=== PATIENT | male | born 1970 | race Caucasian/White ===

== ENCOUNTER → 2016-09-30 | Outpatient (CLI) | payer OTHER ==
[2016-09-30 11:06] LABS: BASO % 0.2 %; BASO ABS # 0.01 K/uL (0-0.2); COMPLETE YES; HEMATOCRIT 42.4 % (42-52); IG% 0.6 %; LYMPH ABS # 1.98 K/uL (1.2-3.4); MEAN CELL VOLUME 88.3 fL (80-100); MEAN CORPUSCULAR HEMOGLOBIN 30.6 pg (25-34); MEAN CORPUSCULAR HGB CONC 34.7 g/dl (32-36); MONO % 10.6 %; NEUT % 47.6 %; PLATELET COUNT 293 K/uL (130-400); WHITE BLOOD COUNT 5.08 K/uL (4.8-10.8)
[2016-09-30 11:34] LABS: ALT/SGPT 32 U/L (12-78); AST/SGOT 15 U/L (15-37); BLOOD UREA NITROGEN 14 mg/dl (7-18); BUN/CREATININE RATIO 12.9 (10-20); CALCIUM 8.7 mg/dl (8.5-10.1); CARBON DIOXIDE 26 mmol/L (21-32); CHLORIDE 106 mmol/L (98-107); CHOLESTEROL 179 mg/dl (0-200); GLUCOSE 95 mg/dl (70-99); POTASSIUM 4.3 mmol/L (3.5-5.1); SODIUM 139 mmol/L (136-145); TRIGLYCERIDES 138 mg/dl (0-150); VERY LOW DENSITY LIPOPROT CALC 28 mg/dl
[2016-09-30 11:37] LABS: ALB/GLOB RATIO 1.2 (0.9-2); ALKALINE PHOSPHATASE 68 U/L (45-117); HDL CHOLESTEROL 36 mg/dl; LDL CHOLESTEROL CALCULATED 115 mg/dl
[2016-10-03 16:30] LABS: LSP % CELLS ANALYZED CD4 35 % (30-61); LSP ABSOLUTE CT CD4 646 cells/uL (490-1740); LSP LYMPHOCYTES ABSOLUTE 1870 cells/uL (850-3900)
== END | disposition home or self-care (01) ==
LOC: C.LAB1850 09:43
PROVIDERS: ATTEND Internal Medicine Infectious Disease
DX: B20 Human immunodeficiency virus [HIV] disease (principal)

== ENCOUNTER → 2017-06-08 | Outpatient (CLI) | payer BC, OTHER ==
[2017-06-08 10:19] LABS: BASO % 0.3 %; BASO ABS # 0.02 K/uL (0-0.2); COMPLETE YES; EOS % 0.9 %; HEMATOCRIT 42.7 % (42-52); IG% 0.3 %; LYMPH % 21.5 %; LYMPH ABS # 1.45 K/uL (1.2-3.4); MEAN CELL VOLUME 91.4 fL (80-100); MEAN CORPUSCULAR HEMOGLOBIN 30.8 pg (25-34); MEAN CORPUSCULAR HGB CONC 33.7 g/dl (32-36); MEAN PLATELET VOLUME 9.7 fL (7.4-10.4); MONO % 10.8 %; NEUT % 66.2 %; PLATELET COUNT 255 K/uL (130-400); RED BLOOD COUNT 4.67 M/uL (4.7-6.1); WHITE BLOOD COUNT 6.75 K/uL (4.8-10.8)
[2017-06-08 10:41] LABS: BLOOD UREA NITROGEN 14 mg/dl (7-18); CREATININE 0.99 mg/dl (0.60-1.40); GLUCOSE 69 mg/dl (70-99)
[2017-06-08 10:42] LABS: ALT/SGPT 33 U/L (12-78); AST/SGOT 19 U/L (15-37); BUN/CREATININE RATIO 14.1 (10-20); CALCIUM 9.1 mg/dl (8.5-10.1); CARBON DIOXIDE 30 mmol/L (21-32); CHLORIDE 104 mmol/L (98-107); SODIUM 135 mmol/L (136-145)
[2017-06-08 10:44] LABS: ALB/GLOB RATIO 1.1 (0.9-2); ALKALINE PHOSPHATASE 79 U/L (45-117)
[2017-06-10 09:31] LABS: LSP % CELLS ANALYZED CD4 39 % (30-61); LSP ABSOLUTE CT CD4 509 cells/uL (490-1740); LSP LYMPHOCYTES ABSOLUTE 1293 cells/uL (850-3900)
== END | disposition home or self-care (01) ==
LOC: C.LAB1850 09:24
PROVIDERS: ATTEND Internal Medicine Infectious Disease
DX: B20 Human immunodeficiency virus [HIV] disease (principal)

== ENCOUNTER 2024-04-12 13:01 | Inpatient (IN) ==
--- NOTE | 2024-04-12 13:48 | Emergency Department Note ---
Impression & Plan Lumbosacral radiculopathy, Neuroforaminal stenosis of lumbar spine ED Provider Note NAME: GENI RIVAS AGE: 53 SEX: M : 1970 ARRIVES VIA: Walk-In INFORMANT: Patient ED PROVIDER(S): JANEL Otto, Vinh Mcelroy DO CHIEF COMPLAINT: Back pain, numbness HISTORY OF PRESENT ILLNESS: This 53-year-old male patient presents to the emergency department via private vehicle for evaluation of right-sided back pain, with numbness and tingling down the right extremity. He reports he went to [facility] last week when he noticed the pain worsening. He reports Wednesday he was barely able to walk. He states they performed no imaging, and discharged him home. He reports the pain worsened to the point where he was unable to stand. He states he has an outpatient MRI scheduled for Wednesday, however the pain is so severe, he is unable to ambulate. He reports he was unable to walk to the room, and required a wheelchair. He reports subjective paresthesias in the right leg, no loss of bowel or bladder, no numbness or tingling in the groin. He states he feels as if the right leg is going to "give out on him." He denies injury, fever, abdominal pain, nausea, vomiting, diarrhea, constipation, or dysuria. REVIEW OF SYSTEMS: A review of systems was performed with positives and pertinent negatives listed in the history of present illness. All other systems were reviewed and are negative. ALLERGIES: See below MEDICATIONS: See below PMH: See below PHYSICAL EXAM: VITALS: Vitals are noted on the nurse's note and reviewed by myself. Vital signs stable. GENERAL: 53-year-old male, in no acute distress, nondiaphoretic, well-developed well-nourished. SKIN: The skin was without rashes, erythema, edema, or bruising. HEAD: Normocephalic atraumatic. HEART: Regular rate and rhythm without murmurs gallops or rubs. LUNGS: Clear to auscultation bilaterally without wheezes, rales or rhonchi. No retractions or accessory muscle use. ABDOMEN: Positive bowel sounds x 4. Soft, nontender, without masses or organomegaly. Arellano sign negative. No guarding or rebound tenderness. MUSCULOSKELETAL: Positive, right and left straight leg raise, right worse than left. Sensation, intact to dull and sharp, bilaterally. Pain with dorsiflexion and plantarflexion of the right foot, DP pulse intact. TTP right paraspinal region, no palpable spasm present. NEURO: Patient was alert and oriented to person place and time. No focal neurological deficits. MEDICAL DECISION MAKING: The patient is a pleasant 53-year-old male who arrives to the emergency department for evaluation of the above-stated complaint. A saline lock was established, CBC, CMP, ESR, CRP were obtained. CBC shows no leukocytosis, with a stable hemoglobin and hematocrit, CMP is unremarkable, ESR, CRP within normal limits. Patient was provided 500 mg of Robaxin, 10 mg of IM dexamethasone, 30 mg of IM Toradol, and 1000 mg of p.o. acetaminophen, as well as a topical Lidoderm patche. CT imaging of the lumbar spine without contrast was obtained which shows a posterior annular disc bulge at L4-L5 in conjunction with ligamentum flavum thickening and facet arthrosis causes moderate central canal stenosis with moderate to severe bilateral foraminal narrowing. I spoke with Dr. Tsang from orthopedic spine, who recommended MRI imaging for further evaluation, and agreed to consult the patient, during admission. An IV dose of morphine, as well as IV fluids were provided to the patient for further pain control, which was unsuccessful. The patient is unable to stand, without severe discomfort, he has significant ambulatory dysfunction, and requires pain control. I spoke with the hospitalist regarding patient admission, with orthopedic consult. Dr. Hein, agreed to accept the patient for admission, and further workup. Please refer to his documentation for further patient care, MRI imaging results, and pain control. DIFFERENTIAL DIAGNOSIS: Musculoskeletal, disc herniation, fracture, metastatic disease, cord compression, discitis, sciatica, cauda equina, infection, aortic disease, renal colic, gastrointestinal, as well as other pathologies. The chart was completed utilizing [employer] Speech voice recognition software. Grammatical errors, random word insertions, pronoun errors, and incomplete sentences are an occasional consequence of this system due to software limitations, ambient noise, and hardware issues. Any formal questions or concerns about the content, text, or information contained within the body of this dictation should be directly addressed to the physician for clarification. Past Med/Surg History Problem List (Updated 04/17/24 @ 21:33 by JANEL Miller) Neuroforaminal stenosis of lumbar spine (Acute) Lumbosacral radiculopathy (Acute) Anxiety and depression Dyslipidemia HIV (human immunodeficiency virus infection) HTN (hypertension) BPH w urinary obs/LUTS (Chronic) Encounter for vasectomy (Acute) Surgical History History of tonsillectomy and adenoidectomy History of cholecystectomy H/O circumcision Family History Brother Heart disease Father Heart disease Mother Heart disease Social History Smoking Status: Never smoker Hx Alcohol Use: No Hx Substance Use: Yes Prescribed Medications: Marijuana Last Used Substance: Unknown Substance Use Type Other:: Marijuana vape Preferred Language: Moroccan Communication Ability: Effective 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 Room Required: No Beliefs That Will Affect Care: None Current Living Situation: Alone Feels Safe at Home: Yes Safety Concerns: Feels Safe At This Time Assistive Devices: None Assistive Devices Comment: Upper partial Allergies Allergies Allergy/AdvReac Type Severity Reaction Status Date / Time carbamazepine AdvReac Intermediate aches Verified 04/12/24 20:50 Home Meds Home Medications Medication Instructions Recorded Confirmed atorvastatin 20 mg tablet 20 mg PO DAILY 02/24/24 04/12/24 bictegravir 50 mg-emtricitabine 1 tab PO DAILY 02/24/24 04/12/24 200 mg-tenofovir alafenam 25 mg tablet (Biktarvy) bupropion HCl 150 mg 24 hr tablet, 150 mg PO QAM 02/24/24 04/12/24 extended release bupropion HCl 300 mg 24 hr tablet, 300 mg PO QAM 02/24/24 04/12/24 extended release metformin 500 mg tablet 500 mg PO BIDM 02/24/24 04/12/24 lamotrigine 100 mg tablet 200 mg PO DAILY 04/12/24 04/12/24 lisinopril 20 20 - 25 tab PO DAILY 04/12/24 04/12/24 mg-hydrochlorothiazide 25 mg tablet melatonin 5 mg tablet 5 mg PO HS PRN Insomnia 04/12/24 04/12/24 trazodone 50 mg tablet 50 mg PO QPM 10/02/24 10/02/24 Previous Rx's Medication Instructions Recorded finasteride 5 mg tablet 5 mg PO DAILY #90 tabs 02/24/24 tamsulosin 0.4 mg capsule 0.4 mg PO DAILY #30 caps 02/24/24 docusate sodium 100 mg capsule 100 mg PO BID PRN constipation #20 04/16/24 caps gabapentin 300 mg capsule 300 mg PO TID #90 caps 04/16/24 oxycodone 10 mg tablet 10 mg PO Q6H PRN pain (scale score 04/16/24 7-10) 5 days #20 tabs Results & Data (ED) Vital Signs Vital Signs - 24 hr 04/12/24 13:14 Temperature 36.6 C Temperature Source Skin Pulse Rate 78 Respiratory Rate 18 Blood Pressure 161/100 H Blood Pressure Mean 120 Pulse Oximetry 98 Sepsis Recent Fever Within 48 Hours No Sepsis New/Unexplained Change in Mental Status No Sepsis Action Taken by Nursing No Action Required Home Medications Current Medication List: was personally reviewed by me Laboratory Data Attestation: I reviewed the patient's lab results. 04/14/24 06:39 04/14/24 06:39 Lab Results 04/12/24 04/12/24 04/12/24 Range/Units 18:55 19:10 19:56 WBC 7.45 (4.8-10.8) K/ul RBC 5.21 (4.70-6.10) M/uL Hgb 16.1 (14.0-18.0) g/dl Hct 45.5 (42.0-52.0) % MCV 87.3 (80.0-100.0) fL MCH 30.9 (25.0-34.0) pg MCHC 35.4 (32.0-36.0) g/dL RDW Std Deviation 35.8 L (36.4-46.3) fL RDW Coeff of Cesar 11.2 L (11.5-14.5) % Plt Count 320 (130-400) K/uL MPV 9.2 L (9.4-12.4) fL Immature Gran % (Auto) 0.8 % Neut % (Auto) 88.6 % Lymph % (Auto) 9.1 % Woodson % (Auto) 1.3 % Eos % (Auto) 0.1 % Baso % (Auto) 0.1 % Neut # (Auto) 6.59 H (1.40-6.50) K/uL Lymph # (Auto) 0.68 L (1.20-3.40) K/uL Woodson # (Auto) 0.10 L (0.11-0.59) K/uL Eos # (Auto) 0.01 (0.00-0.50) K/uL Baso # (Auto) 0.01 (0.00-0.20) K/uL Immature Gran # (Auto) 0.06 (0.01-0.20) K/uL ESR 10 (0-20) mm/hr Sodium 135 L (136-145) mmol/L Potassium 4.2 (3.5-5.1) mmol/L Chloride 101 (98-107) mmol/L Carbon Dioxide 24 (21-32) mmol/L Anion Gap 10 (3-11) BUN 19 (6-23) mg/dl Creatinine 0.96 (0.6-1.4) mg/dl Est Cr Clr Drug Dosing 122.9 ml/min eGFR 95.70 BUN/Creatinine Ratio 19.8 (10-20) Glucose 128 H (70-99(Fasting)) mg/dl Estimat Average Glucose 103 mg/dl Hemoglobin A1c 5.2 (4.5-5.6) % Calcium 9.9 (8.6-10.3) mg/dl Total Bilirubin 0.7 (0.2-1.0) mg/dl AST 23 (13-39) U/L ALT 28 (7-52) U/L Alkaline Phosphatase 59 (34-104) U/L C-Reactive Protein < 0.50 (0-0.5) mg/dl Total Protein 7.9 (6.0-8.3) gm/dl Albumin 5.1 H (3.4-5.0) gm/dl Globulin 2.8 (2.5-4.0) gm/dl Albumin/Globulin Ratio 1.8 (0.9-2) Urine Color Yellow Urine Appearance Clear (Clear) Urine pH 6.5 (4.5-7.5) Ur Specific Bell 1.030 (1.000-1.030) Urine Protein Negative (Negative) Urine Glucose (UA) Negative (Negative) Urine Ketones Negative (Negative) Urine Blood Negative (Negative) Urine Nitrite Negative (Negative) Urine Bilirubin Negative (Negative) Urine Urobilinogen Negative (Negative) Ur Leukocyte Esterase Negative (Negative) Administered Medications Discontinued Medications Acetaminophen (Acetaminophen 500 Mg Tab) 1,000 mg PO NOW STA Stop: 04/12/24 14:24 Last Admin: 04/12/24 14:39 Dose: 1,000 mg Documented By: LAXMI Acetaminophen (Acetaminophen 325 Mg Tab) 650 mg PO QID PRN PRN Reason: pain/fever Stop: 05/12/24 19:29 Last Admin: 04/15/24 19:48 Dose: 650 mg Documented By: Admin: 04/15/24 02:29 Dose: 650 mg Documented By: Admin: 04/14/24 05:21 Dose: 650 mg Documented By: Admin: 04/13/24 20:39 Dose: 650 mg Documented By: Admin: 04/13/24 10:03 Dose: 650 mg Documented By: KRISTIE Atorvastatin Calcium (Atorvastatin 20 Mg Tab) 20 mg PO DAILY KOLE Stop: 05/14/24 08:59 Last Admin: 04/16/24 09:01 Dose: 20 mg Documented By: Admin: 04/15/24 09:18 Dose: 20 mg Documented By: Admin: 04/14/24 09:23 Dose: 20 mg Documented By: CLARE Bictegravir/Emtricitabine/Tenofovir (Biktarvy) 1 each PO DAILY KOLE Stop: 05/14/24 08:59 Last Admin: 04/16/24 09:02 Dose: 1 each Documented By: Admin: 04/15/24 09:19 Dose: 1 each Documented By: Admin: 04/14/24 09:24 Dose: 1 each Documented By: CLARE Bupropion HCl (Bupropion Xl 300 Mg Tabcr) 300 mg PO QAM KOLE Stop: 05/13/24 08:59 Last Admin: 04/16/24 09:00 Dose: 300 mg Documented By: Admin: 04/15/24 09:18 Dose: 300 mg Documented By: [facility] Admin: 04/14/24 09:22 Dose: 300 mg Documented By: Admin: 04/13/24 08:28 Dose: 300 mg Documented By: KRISTIE Bupropion HCl (Bupropion Xl 150 Mg Tabcr) 150 mg PO QAM KOLE Stop: 05/13/24 08:59 Last Admin: 04/16/24 09:02 Dose: 150 mg Documented By: Admin: 04/15/24 09:18 Dose: 150 mg Documented By: Admin: 04/14/24 09:22 Dose: 150 mg Documented By: Admin: 04/13/24 08:28 Dose: 150 mg Documented By: KRISTIE Dexamethasone Sodium Phosphate (DexamethasonePf 10 Mg/Ml Vial) 10 mg IM NOW ONE Stop: 04/12/24 14:24 Last Admin: 04/12/24 14:40 Dose: 10 mg Documented By: LAXMI Docusate Sodium (Docusate Sodium 100 Mg Cap) 100 mg PO BID KOLE Stop: 05/14/24 20:59 Last Admin: 04/16/24 09:06 Dose: 100 mg Documented By: Admin: 04/15/24 19:47 Dose: 100 mg Documented By: Admin: 04/15/24 09:24 Dose: 100 mg Documented By: Admin: 04/14/24 21:06 Dose: 100 mg Documented By: MACHELLE Finasteride (Finasteride 5 Mg Tab) 5 mg PO DAILY KOLE Stop: 05/14/24 08:59 Last Admin: 04/16/24 09:01 Dose: 5 mg Documented By: Admin: 04/15/24 09:18 Dose: 5 mg Documented By: Admin: 04/14/24 09:23 Dose: 5 mg Documented By: CLARE Gabapentin (Gabapentin 300 Mg Cap) 300 mg PO QPM KOLE Stop: 05/12/24 21:58 Last Admin: 04/12/24 22:42 Dose: 300 mg Documented By: BRIDGETT Gabapentin (Gabapentin 300 Mg Cap) 300 mg PO QPM KOLE Stop: 05/12/24 20:59 Last Admin: 04/13/24 20:39 Dose: 300 mg Documented By: MACHELLE Gabapentin (Gabapentin 300 Mg Cap) 300 mg PO BID KOLE Stop: 05/14/24 20:59 Last Admin: 04/15/24 09:18 Dose: 300 mg Documented By: Admin: 04/14/24 21:06 Dose: 300 mg Documented By: MACHELLE Gabapentin (Gabapentin 300 Mg Cap) 300 mg PO TID KOLE Stop: 05/15/24 20:59 Last Admin: 04/16/24 13:20 Dose: 300 mg Documented By: Admin: 04/16/24 09:00 Dose: 300 mg Documented By: Admin: 04/15/24 19:47 Dose: 300 mg Documented By: MACHELLE Sodium Chloride (Nss) 1,000 mls @ 999 mls/hr IV .Q1H1M ONE Stop: 04/12/24 19:40 Last Infusion: 04/12/24 20:25 Dose: Infused Documented By: Admin: 04/12/24 19:08 Dose: 999 mls/hr Documented By: MELISSA Sodium Chloride (Nss) 1,000 mls @ 60 mls/hr IV .[id number] ONE Stop: 04/13/24 13:29 Last Infusion: 04/13/24 12:39 Dose: Infused Documented By: Admin: 04/12/24 22:10 Dose: 60 mls/hr Documented By: BRIDGETT Influenza Virus Vacc Triv Types A&B (Influenza Vacc [id number](6m+)/Pf (Iiv3) 0.5ml Syr) 0.5 ml IM .ONCE ONE Stop: 04/13/24 09:01 Last Admin: 04/14/24 10:01 Dose: Not Given Documented By: CLARE Insulin Aspart (Insulin Aspart Per Unit Charge) 0 units SC ACHS [facility] Stop: 05/12/24 21:58 Last Admin: 04/14/24 10:02 Dose: Not Given Documented By: [facility] Admin: 04/13/24 22:18 Dose: Not Given Documented By: MACHELLE Co-signed By: JOSE Admin: 04/13/24 17:39 Dose: Not Given Documented By: Admin: 04/13/24 12:39 Dose: Not Given Documented By: Admin: 04/13/24 08:59 Dose: 2 units Documented By: KRISTIE Co-signed By: POONAM Admin: 04/12/24 22:38 Dose: 1 units Documented By: BRIDGETT Co-signed By: JOSE Insulin Aspart (Insulin Aspart Per Unit Charge) 0 units SC Q6 [facility] Stop: 05/14/24 07:59 Last Admin: 04/14/24 11:50 Dose: Not Given Documented By: Admin: 04/14/24 09:20 Dose: Not Given Documented By: CLARE Insulin Aspart (Insulin Aspart Per Unit Charge) 0 units SC ACHS [facility] Stop: 05/14/24 07:59 Last Admin: 04/16/24 12:21 Dose: Not Given Documented By: Admin: 04/16/24 08:56 Dose: 3 units Documented By: NIDHI Co-signed By: MARIELLA Admin: 04/15/24 20:33 Dose: Not Given Documented By: MACHELLE Co-signed By: STEPHEN Admin: 04/15/24 17:34 Dose: 2 units Documented By: JORDAN Co-signed By: YOKASTA Admin: 04/15/24 12:12 Dose: 1 units Documented By: JORDAN Co-signed By: STEPHEN Admin: 04/15/24 09:25 Dose: 5 units Documented By: JORDAN Co-signed By: STEPHEN Admin: 04/14/24 22:56 Dose: Not Given Documented By: MACHELLE Co-signed By: CASSIDY Admin: 04/14/24 17:27 Dose: 2 units Documented By: CLARE Co-signed By: BILLY Ketorolac Tromethamine (Ketorolac Tromethamine 60 Mg/2 Ml Vial) 30 mg IM NOW STA Stop: 04/12/24 14:24 Last Admin: 04/12/24 14:40 Dose: 30 mg Documented By: LAXMI Ketorolac Tromethamine (Ketorolac 30 Mg/Ml Vial) 30 mg IV NOW ONE Stop: 04/14/24 08:03 Last Admin: 04/14/24 09:21 Dose: 30 mg Documented By: CLARE Lamotrigine (Lamotrigine 100 Mg Tab) 100 mg PO BID [facility]; Protocol Stop: 05/12/24 21:58 Last Admin: 04/16/24 09:00 Dose: 100 mg Documented By: Admin: 04/15/24 19:47 Dose: 100 mg Documented By: Admin: 04/15/24 09:18 Dose: 100 mg Documented By: Admin: 04/14/24 21:07 Dose: 100 mg Documented By: Admin: 04/14/24 09:23 Dose: 100 mg Documented By: Admin: 04/13/24 20:39 Dose: 100 mg Documented By: Admin: 04/13/24 08:27 Dose: 100 mg Documented By: Admin: 04/12/24 22:42 Dose: 100 mg Documented By: BRIDGETT Lidocaine (Lidocaine 5% 1 Patch) 1 patch TD NOW STA Stop: 04/12/24 14:24 Last Admin: 04/12/24 14:40 Dose: 1 patch Documented By: LAXMI Lisinopril (Lisinopril 10 Mg Tab) 10 mg PO NOW STA Stop: 04/12/24 20:52 Last Admin: 04/12/24 22:11 Dose: 10 mg Documented By: BRIDGETT Lisinopril (Lisinopril 20 Mg Tab) 20 mg PO QAM [facility] Stop: 05/13/24 08:59 Last Admin: 04/16/24 09:00 Dose: 20 mg Documented By: Admin: 04/15/24 09:18 Dose: 20 mg Documented By: Admin: 04/14/24 09:23 Dose: 20 mg Documented By: Admin: 04/13/24 08:27 Dose: 20 mg Documented By: KRISTIE Methocarbamol (Methocarbamol 500 Mg Tablet) 500 mg PO NOW [facility] Stop: 04/12/24 14:24 Last Admin: 04/12/24 14:40 Dose: 500 mg Documented By: LAXMI Miscellaneous (Remove Lidoderm Patch) 1 each N/A DAILY@2100 [facility] Stop: 05/12/24 20:59 Last Admin: 04/12/24 20:49 Dose: Not Given Documented By: MELISSA Poon (Remove Lidoderm Patch) 1 each N/A TODAY@0240 [facility] Stop: 04/13/24 02:41 Last Admin: 04/13/24 01:19 Dose: 1 each Documented By: BRIDGETT Hollowayaneous (Order Awaiting Action (Biktarvy)) 1 each N/A QS [facility] Stop: 05/13/24 15:59 Last Admin: 04/14/24 03:26 Dose: Not Given Documented By: Admin: 04/13/24 17:39 Dose: Not Given Documented By: KRISTIE Morphine Sulfate (Morphine Sulfate 4 Mg/Ml 1 Ml Carp\\Vial) 4 mg IV NOW [facility] Stop: 04/12/24 18:41 Last Admin: 04/12/24 19:08 Dose: 4 mg Documented By: MELISSA Non-Formulary Medication (Melatonin) 0 mg PO [facility] Stop: 05/12/24 21:58 Last Admin: 04/12/24 22:50 Dose: Not Given Documented By: BRIDGETT Oxycodone HCl (Oxycodone Hcl Ir 5 Mg Tab (Immediate Release)) 5 mg PO NOW STA Stop: 04/12/24 16:18 Last Admin: 04/12/24 16:24 Dose: 5 mg Documented By: CYNTHIA Oxycodone HCl (Oxycodone Hcl Ir 5 Mg Tab (Immediate Release)) 5 - 10 mg PO QID PRN PRN Reason: Pain Stop: 04/26/24 19:28 Last Admin: 04/16/24 08:55 Dose: 10 mg Documented By: Admin: 04/16/24 02:01 Dose: 10 mg Documented By: Admin: 04/15/24 18:10 Dose: 10 mg Documented By: Admin: 04/15/24 12:01 Dose: 10 mg Documented By: Admin: 04/15/24 03:23 Dose: 10 mg Documented By: Admin: 04/14/24 21:07 Dose: 10 mg Documented By: Admin: 04/14/24 14:49 Dose: 10 mg Documented By: Admin: 04/14/24 06:45 Dose: 10 mg Documented By: Admin: 04/14/24 00:15 Dose: 10 mg Documented By: Admin: 04/13/24 18:09 Dose: 10 mg Documented By: Admin: 04/13/24 12:37 Dose: 10 mg Documented By: Admin: 04/13/24 05:50 Dose: 5 mg Documented By: Admin: 04/12/24 20:33 Dose: 10 mg Documented By: SINDY Polyethylene Glycol (Polyethylene (Miralax) 17 Gm Pack) 17 gm PO DAILY PRN PRN Reason: Constipation Stop: 05/14/24 10:51 Last Admin: 04/15/24 09:31 Dose: 17 gm Documented By: JORDAN Tamsulosin HCl (Tamsulosin Hcl 0.4 Mg Cap) 0.4 mg PO DAILY KOLE Stop: 05/13/24 08:59 Last Admin: 04/16/24 09:00 Dose: 0.4 mg Documented By: Admin: 04/15/24 09:18 Dose: 0.4 mg Documented By: [facility] Admin: 04/14/24 09:22 Dose: 0.4 mg Documented By: Admin: 04/13/24 08:28 Dose: 0.4 mg Documented By: KRISTIE Trazodone HCl (Trazodone Hcl 50 Mg Tab) 50 mg PO QPM KOLE Stop: 05/12/24 21:58 Last Admin: 04/15/24 19:47 Dose: 50 mg Documented By: Admin: 04/14/24 21:07 Dose: 50 mg Documented By: Admin: 04/13/24 20:39 Dose: 50 mg Documented By: Admin: 04/12/24 22:42 Dose: 50 mg Documented By: BRIDGETT Imaging Data Attestation: I personally reviewed and interpreted this imaging study as follows: Discharge Plan Visit Data Chief Complaint: Back Injury/Pain Stated Complaint: BACK PAIN ED Provider: Vinh Mcelroy ED Midlevel Provider: Lupe Box Discharge Problem: Lumbosacral radiculopathy, Neuroforaminal stenosis of lumbar spine Patient Disposition: Admitted As Inpatient Discharge Instructions Interventions: ED Discharge Assessment Last Done: 04/12/24 21:34
[2024-04-12] MEDS: ACETAMINOPHEN 500 MG TAB PO STA (14:39)
[2024-04-12] MEDS: LIDOCAINE 5% 1 PATCH TD STA (14:40)
[2024-04-12] MEDS: dexAMETHasone**PF** 10 MG/ML VIAL IM ONE (14:40)
[2024-04-12] MEDS: KETOROLAC TROMETHAMINE 60 MG/2 ML VIAL IM STA (14:40)
[2024-04-12] MEDS: METHOCARBAMOL 500 MG TABLET PO STA (14:40)
--- NOTE | 2024-04-12 15:24 | CT Scan Report ---
CT lumbar spine wo con HISTORY: 53 years-old Male severe pain acute severe low back pain with numbness and tingling of the lower legs COMPARISON: None TECHNIQUE: Multiple axial CT images of the lumbar spine were obtained without IV contrast. A dose low ering technique was used consistent with the principals of ALARA. FINDINGS: Atherosclerosis of the iliac bifurcation. The imaged intra-abdominal and paraspinal structures are un remarkable. Probable small cyst of the left kidney. There is mild multilevel intervertebral disc spac e narrowing, spondylitic spurring and facet arthrosis throughout the lumbar spine. No acute fracture, subluxation, endplate erosion or marrow replacing process. The imaged sacrum and iliac bones also ap pear to be intact. Suboptimal evaluation of the central canal and neural foramen by CT technique. T12-L1: No central canal or foraminal narrowing. L1-L2: No central canal or foraminal narrowing. L2-L3: Small posterior disc osteophyte complex with ligamentum flavum thickening and facet arthrosis flattens the ventral thecal sac without significant central canal stenosis. Mild to moderate right fo raminal narrowing. The left neural foramen is patent. L3-L4: Small posterior disc osteophyte complex noted in conjunction with ligament flavum thickening a nd facet arthrosis. Minimal central canal stenosis with mild bilateral foraminal narrowing. L4-L5: Spondylotic spurring with circumferential annular disc bulging. Punctate calcification noted o n image 278 series 3. Ligamentum flavum thickening with mild to moderate facet arthrosis. There is mo derate central canal stenosis with at least moderate narrowing of the lateral recesses. Moderate to s evere bilateral foraminal narrowing. L5-S1: Spondylotic spurring with small posterior annular disc bulge, ligamentum flavum thickening wit h moderate facet arthrosis. The central canal is patent. Mild bilateral foraminal narrowing. IMPRESSION: 1. No acute fracture or subluxation. 2. Posterior annular disc bulge at L4-L5 in conjunction with ligamentum flavum thickening and facet a rthrosis causes moderate central canal stenosis with moderate to severe bilateral foraminal narrowing . ACT 112: Negative or not required by law. The above report was generated using voice recognition software. It may contain grammatical, syntax o r spelling errors. Electronically signed by: Sherman Giang M.D. 04/12/2024 3:23 PM
[2024-04-12] MEDS: oxyCODONE HCL IR 5 MG TAB (IMMEDIATE RELEASE) PO STA (16:24)
[2024-04-12] MEDS: SODIUM CHLORIDE 0.9% 1,000 ML IV ONE ×2 (19:08→22:10)
[2024-04-12] MEDS: MoRPHine SULFATE 4 MG/ML 1 ML CARP\\VIAL IV STA (19:08)
--- NOTE | 2024-04-12 19:10 | Magnetic Resonance Report ---
MR lumbar spine wo con CLINICAL HISTORY: 53 years-old Male with right leg weak. Acute low back pain with right lower extrem ity radicular symptoms COMPARISON: CT lumbar spine of same day TECHNIQUE: Multiplanar, multi sequence MRI of the lumbar spine was performed without intravenous cont rast. FINDINGS: The imaged intra-abdominal and paraspinal structures are unremarkable. There is [id number] mult ilevel intervertebral disc space narrowing, spondylitic spurring and facet arthrosis throughout the l umbar spine. No acute fracture, subluxation, endplate erosion or marrow replacing process. The imaged sacrum and iliac bones also appear to be intact. Conus medullaris terminates at L1. No marrow edema. T12-L1: No central canal or foraminal narrowing. L1-L2: No central canal or foraminal narrowing. L2-L3: Small posterior disc osteophyte complex with ligamentum flavum thickening and facet arthrosis flattens the ventral thecal sac without significant central canal stenosis. Mild to moderate right fo raminal narrowing. The left neural foramen is patent. L3-L4: Small posterior disc osteophyte complex noted in conjunction with ligament flavum thickening a nd facet arthrosis. Minimal central canal stenosis with mild bilateral foraminal narrowing. L4-L5: Spondylotic spurring with circumferential annular disc bulging. Ligamentum flavum thickening w ith mild to moderate facet arthrosis and small facet effusions. There is moderate central canal steno sis, AP dimension of the central canal measuring 7 mm. Left paracentral/left lateral recess 8 mm disc protrusion and annular fissure on image 22 series 6. Severe left lateral recess narrowing. There is moderate right lateral recess narrowing. 9 mm right foraminal disc protrusion on image 21 series 6. M oderate left with moderate to severe right foraminal narrowing. L5-S1: Spondylotic spurring with small posterior annular disc bulge, ligamentum flavum thickening wit h moderate facet arthrosis. The central canal is patent. Mild bilateral foraminal narrowing. IMPRESSION: 1. No acute fracture or subluxation. 2. Discogenic degeneration as above, most pronounced at L4-L5 resulting in associated central canal, lateral recess and neural foraminal narrowing. ACT 112: Negative or not required by law. The above report was generated using voice recognition software. It may contain grammatical, syntax o r spelling errors. Electronically signed by: Sherman Giang M.D. 04/12/2024 7:07 PM
[2024-04-12 19:15] LABS: Basophils # (auto) 0.01 K/uL (0.00-0.20); Basophils % (auto) 0.1 %; Eosinophils # (auto) 0.01 K/uL (0.00-0.50); Eosinophils % (auto) 0.1 %; Hematocrit (blood only) 45.5 % (42.0-52.0); Hemoglobin 16.1 g/dl (14.0-18.0); Immature Granulocytes # (auto) 0.06 K/uL (0.01-0.20); Immature Granulocytes % (auto) 0.8 %; Lymphocytes # (auto) 0.68 K/uL (1.20-3.40); Lymphocytes % (auto) 9.1 %; Mean Corpuscular Hemoglobin 30.9 pg (25.0-34.0); Mean Corpuscular Hgb Conc 35.4 g/dL (32.0-36.0); Mean Corpuscular Volume 87.3 fL (80.0-100.0); Mean Platelet Volume 9.2 fL (9.4-12.4); Monocytes % (auto) 1.3 %; Neutrophils # (auto) 6.59 K/uL (1.40-6.50); Neutrophils % (auto) 88.6 %; Platelet Count 320 K/uL (130-400); RDW Coefficient of Variation 11.2 % (11.5-14.5); RDW Standard Deviation 35.8 fL (36.4-46.3); Red Blood Count 5.21 M/uL (4.70-6.10); White Blood Count 7.45 K/ul (4.8-10.8)
[2024-04-12 19:28] LABS: Appearance Urine Clear (Clear); Bilirubin Urine Negative (Negative); Blood Urine Negative (Negative); Color Urine Yellow; Glucose Urine UA Negative (Negative); Ketones Urine Negative (Negative); Leukocyte Esterase Urine Negative (Negative); Nitrite Urine Negative (Negative); Protein Urine Negative (Negative); Urobilinogen Urine Negative (Negative); pH Urine 6.5 (4.5-7.5)
[2024-04-12] MEDS ORDERED: PROMETHAZINE 6.25 MG/50.25 ML BAG IV PRN (19:29)
[2024-04-12 19:35] LABS: Alanine Aminotransferase 28 U/L (7-52); Albumin Globulin Ratio 1.8 (0.9-2); Albumin Level 5.1 gm/dl (3.4-5.0); Alkaline Phosphatase 59 U/L (34-104); Anion Gap 10 (3-11); Aspartate Aminotransferase 23 U/L (13-39); BUN Creatinine Ratio 19.8 (10-20); Bilirubin,Total 0.7 mg/dl (0.2-1.0); Blood Urea Nitrogen 19 mg/dl (6-23); Calcium 9.9 mg/dl (8.6-10.3); Carbon Dioxide 24 mmol/L (21-32); Chloride 101 mmol/L (98-107); Creatinine Clr Calc Pharmacy 122.9 ml/min; Globulin 2.8 gm/dl (2.5-4.0); Glucose 128 mg/dl (70-99(Fasting)); Potassium 4.2 mmol/L (3.5-5.1); Sodium 135 mmol/L (136-145); Total Protein 7.9 gm/dl (6.0-8.3)
--- NOTE | 2024-04-12 19:39 | History & Physical Report ---
Date of Service April 12, 2024 Assessment & Plan (1) Lumbosacral radiculopathy: (2) HTN (hypertension): (3) Dyslipidemia: (4) HIV (human immunodeficiency virus infection): (5) Anxiety and depression: (6) BPH w urinary obs/LUTS: Plan: HPI, ROS, PE completed by myselft, Seu Martinez, MARY ANN Assessment and Plan per Dr Hein. See addendum History of Present Illness Chief Complaint: Back pain Primary Care Provider: Trinh Wilson DO Patient is 53 year old male with PMH HTN, HLD, metabolic syndrome, HIV, anxiety, depression presented to ER with c/o back pain with radiation to RLE x 5 days. Patient states 5 days ago started with right low back pain with radiation right hip and right leg. States pain is sharp and intense with range of motion of back or walking. Describes pain as going right lateral hip down into right anterior thigh and right lateral leg extending to right calf. Reports some tingling sensation to right lower leg. Denies loss of control of bowel or bladder. Denies any known injury. States history of similar symptoms in past that would usually last 1 to 2 days and self resolve. Patient was seen at [facility] ER on 04/08/24 and given Solumedrol 125mg IV, Dilaudid 0.5mg IV, cyclobenzaprine 10mg and lidocaine patch and was discharged with Rx for gabapentin was diagnosed with sciatica per chart review. Patient seen PCPs office 04/10/2024 for back pain and was prescribed prednisone 40 mg daily x 5 days and MRI lumbar spine was ordered however not completed yet. Denies fever/chills, diaphoresis, N/V/D/C, [place], dizziness, syncope, neck pain, CP, SOB, cough, sore throat, rhinorrhea, abdominal pain, extremity weakness, extremity edema, rashes, urinary symptoms. Allergies Allergy/AdvReac Type Severity Reaction Status Date / Time carbamazepine AdvReac Intermediate aches Verified 04/12/24 20:50 Home Medications Medication Instructions Recorded Confirmed Type atorvastatin 20 mg tablet 20 mg PO DAILY 02/24/24 04/12/24 History bictegravir 50 mg-emtricitabine 1 tab PO DAILY 02/24/24 04/12/24 History 200 mg-tenofovir alafenam 25 mg tablet (Biktarvy) bupropion HCl 150 mg 24 hr tablet, 150 mg PO QAM 02/24/24 04/12/24 History extended release bupropion HCl 300 mg 24 hr tablet, 300 mg PO QAM 02/24/24 04/12/24 History extended release finasteride 5 mg tablet 5 mg PO DAILY #90 tabs 02/24/24 04/12/24 Rx metformin 500 mg tablet 500 mg PO BIDM 02/24/24 04/12/24 History tamsulosin 0.4 mg capsule 0.4 mg PO DAILY #30 caps 02/24/24 04/12/24 Rx gabapentin 300 mg capsule 300 mg PO QPM 04/12/24 04/12/24 History lamotrigine 100 mg tablet 200 mg PO DAILY 04/12/24 04/12/24 History lisinopril 20 20 - 25 tab PO DAILY 04/12/24 04/12/24 History mg-hydrochlorothiazide 25 mg tablet melatonin 5 mg tablet 5 mg PO HS PRN Insomnia 04/12/24 04/12/24 History prednisone 20 mg tablet 40 mg PO DAILY 04/12/24 04/12/24 History trazodone 50 mg tablet 50 mg PO QPM 04/12/24 04/12/24 History Past Med/Surg History Problem List (Updated 04/12/24 @ 20:09 by Sue Martinez PA-C) Lumbosacral radiculopathy Anxiety and depression Dyslipidemia HIV (human immunodeficiency virus infection) HTN (hypertension) BPH w urinary obs/LUTS (Chronic) Encounter for vasectomy (Acute) Surgical History History of tonsillectomy and adenoidectomy History of cholecystectomy H/O circumcision Family History Brother Heart disease Father Heart disease Mother Heart disease Social History (Updated 04/12/24 @ 20:01 by Sue Martinez PA-C) Smoking Status: Never smoker Hx Alcohol Use: No Hx Substance Use: Yes Prescribed Medications: Marijuana Last Used Substance: Unknown Substance Use Type Other:: Marijuana vape Preferred Language: Kosovan Communication Ability: Effective Molded [employer] Inspector Required: No Beliefs That Will Affect Care: None Current Living Situation: Alone Feels Safe at Home: Yes Safety Concerns: Feels Safe At This Time Assistive Devices Comment: Upper partial Review of Systems Review of Systems: All systems reviewed & are unremarkable except as noted in HPI & below Physical Exam Physical Exam: General: no acute distress currently, WDWN Head: normocephalic, atraumatic Eyes: conjunctiva non-injected, anicteric ENT: normal inspection external ears, nose, mucous membranes moist Neck: supple, trachea midline, non-tender to palpation Lungs: clear, no respiratory distress, no wheezing/rhonchi/rales CV: RRR, no murmur, no pretibial edema Abd: normal BS, soft, non-tender Back: +tenderness to palpation lower lumbar spinous processes and right paraspinous lumbar musculature, +tenderness to palpation right gluteus girish, +right straight leg raise to approximately 45 degrees, sensation to light touch intact bilateral legs and reported sensation equal bilaterally Ext: no cyanosis, no calf tenderness Neuro: A&O x 3, no focal deficits noted, normal affect Skin: warm, dry Results & Data Results & Data Vital Signs (Past 12 Hours) Vital Signs Temp Pulse Pulse Resp BP BP Pulse Ox 04/12/24 15:51 61 16 117/73 94 04/12/24 13:14 36.6 C 78 18 161/100 H 98 O2 Del Method 04/12/24 15:51 Room Air 04/12/24 13:14 Laboratory Results Short CBC 04/12/24 Range/Units 18:55 WBC 7.45 (4.8-10.8) K/ul Hgb 16.1 (14.0-18.0) g/dl Hct 45.5 (42.0-52.0) % Plt Count 320 (130-400) K/uL BMP 04/12/24 18:55 Sodium 135 L Potassium 4.2 Chloride 101 Carbon Dioxide 24 BUN 19 Creatinine 0.96 Glucose 128 H Calcium 9.9 Liver Function 04/12/24 Range/Units 18:55 Total Bilirubin 0.7 (0.2-1.0) mg/dl AST 23 (13-39) U/L ALT 28 (7-52) U/L Alkaline Phosphatase 59 (34-104) U/L Albumin 5.1 H (3.4-5.0) gm/dl Urine 04/12/24 Range/Units 19:10 Urine Color Yellow Urine Appearance Clear (Clear) Urine pH 6.5 (4.5-7.5) Ur Specific [place] 1.030 (1.000-1.030) Urine Protein Negative (Negative) Urine Glucose (UA) Negative (Negative) Diagnostic Findings Lumbar Spine CT 04/12/24 14:23 CT lumbar spine wo con HISTORY: 53 years-old Male severe pain acute severe low back pain with numbness and tingling of the lower legs COMPARISON: None TECHNIQUE: Multiple axial CT images of the lumbar spine were obtained without IV contrast. A dose lowering technique was used consistent with the principals of ALARA. FINDINGS: Atherosclerosis of the iliac bifurcation. The imaged intra-abdominal and paraspinal structures are unremarkable. Probable small cyst of the left kidney. There is mild multilevel intervertebral disc space narrowing, spondylitic spurring and facet arthrosis throughout the lumbar spine. No acute fracture, subluxation, endplate erosion or marrow replacing process. The imaged sacrum and iliac bones also appear to be intact. Suboptimal evaluation of the central canal and neural foramen by CT technique. T12-L1: No central canal or foraminal narrowing. L1-L2: No central canal or foraminal narrowing. L2-L3: Small posterior disc osteophyte complex with ligamentum flavum thickening and facet arthrosis flattens the ventral thecal sac without significant central canal stenosis. Mild to moderate right foraminal narrowing. The left neural foramen is patent. L3-L4: Small posterior disc osteophyte complex noted in conjunction with ligament flavum thickening and facet arthrosis. Minimal central canal stenosis with mild bilateral foraminal narrowing. L4-L5: Spondylotic spurring with circumferential annular disc bulging. Punctate calcification noted on image 278 series 3. Ligamentum flavum thickening with mild to moderate facet arthrosis. There is moderate central canal stenosis with at least moderate narrowing of the lateral recesses. Moderate to severe bilateral foraminal narrowing. L5-S1: Spondylotic spurring with small posterior annular disc bulge, ligamentum flavum thickening with moderate facet arthrosis. The central canal is patent. Mild bilateral foraminal narrowing. IMPRESSION: 1. No acute fracture or subluxation. 2. Posterior annular disc bulge at L4-L5 in conjunction with ligamentum flavum thickening and facet arthrosis causes moderate central canal stenosis with moderate to severe bilateral foraminal narrowing. ACT 112: Negative or not required by law. The above report was generated using voice recognition software. It may contain grammatical, syntax or spelling errors. Electronically signed by: Sherman Giang M.D. 04/12/2024 3:23 PM Lumbar Spine MRI 04/12/24 16:16 MR lumbar spine wo con CLINICAL HISTORY: 53 years-old Male with right leg weak. Acute low back pain with right lower extremity radicular symptoms COMPARISON: CT lumbar spine of same day TECHNIQUE: Multiplanar, multi sequence MRI of the lumbar spine was performed without intravenous contrast. FINDINGS: The imaged intra-abdominal and paraspinal structures are unremarkable. There is [id number] multilevel intervertebral disc space narrowing, spondylitic spurring and facet arthrosis throughout the lumbar spine. No acute fracture, subluxation, endplate erosion or marrow replacing process. The imaged sacrum and iliac bones also appear to be intact. Conus medullaris terminates at L1. No marrow edema. T12-L1: No central canal or foraminal narrowing. L1-L2: No central canal or foraminal narrowing. L2-L3: Small posterior disc osteophyte complex with ligamentum flavum thickening and facet arthrosis flattens the ventral thecal sac without significant central canal stenosis. Mild to moderate right foraminal narrowing. The left neural foramen is patent. L3-L4: Small posterior disc osteophyte complex noted in conjunction with ligament flavum thickening and facet arthrosis. Minimal central canal stenosis with mild bilateral foraminal narrowing. L4-L5: Spondylotic spurring with circumferential annular disc bulging. Ligamentum flavum thickening with mild to moderate facet arthrosis and small facet effusions. There is moderate central canal stenosis, AP dimension of the central canal measuring 7 mm. Left paracentral/left lateral recess 8 mm disc protrusion and annular fissure on image 22 series 6. Severe left lateral recess narrowing. There is moderate right lateral recess narrowing. 9 mm right foraminal disc protrusion on image 21 series 6. Moderate left with moderate to severe right foraminal narrowing. L5-S1: Spondylotic spurring with small posterior annular disc bulge, ligamentum flavum thickening with moderate facet arthrosis. The central canal is patent. Mild bilateral foraminal narrowing. IMPRESSION: 1. No acute fracture or subluxation. 2. Discogenic degeneration as above, most pronounced at L4-L5 resulting in associated central canal, lateral recess and neural foraminal narrowing. ACT 112: Negative or not required by law. The above report was generated using voice recognition software. It may contain grammatical, syntax or spelling errors. Electronically signed by: Sherman Giang M.D. 04/12/2024 7:07 PM Supervising Physician Co-Signing Physician Notes IM ATTENDING : Patient seen and examined. History obtained from patient and records. Concur with salient points upon review of preceding documentation by Ms. Sue Martinez PA-C. I take responsibility for plan of care below. FINAL ASSESSMENT AND PLAN as follows : Lumbar radiculopathy, right Hypertension slightly elevated secondary to discomfort Hyperlipidemia on statin Rx DM2 on oral medications, well-controlled as of outpatient hemoglobin A1c of 5.14 June 2022 HIV disease, stable on regimen Anxiety/mood disorder, at baseline Past tobacco abuse OBS Lidoderm patch Analgesia PT OT eval Orthopedic spine consult if without improvement (ED provider already in touch with Dr. Tsang.) ISS BG goal 1 10-1 40, carb count coverage, update hemoglobin A1c DVT prophylaxis. SCDs Full code Text document was generated using [employer] voice recognition software. It may contain grammatical or spelling errors. Kindly contact undersigned for clarification of any documentation item in question.
[2024-04-12] MEDS ORDERED: LORazepam 0.5 MG TAB PO PRN (20:00)
[2024-04-12] MEDS: oxyCODONE HCL IR 5 MG TAB (IMMEDIATE RELEASE) PO PRN (20:33)
[2024-04-12 21:06] LABS: Estimated Average Glucose 103 mg/dl; Hemoglobin A1C 5.2 % (4.5-5.6)
[2024-04-12] MEDS ORDERED: CARBOHYDRATES FOR HYPOGLYCEMIA PO PRN (21:59)
[2024-04-12] MEDS ORDERED: GLUCAGON FOR INJ 1 MG VIAL SQ PRN (21:59)
[2024-04-12] MEDS ORDERED: GLUCOSE 40% GEL 15 GM TUBE PO PRN (21:59)
[2024-04-12] MEDS ORDERED: GLUCOSE 10 TAB/TUBE PO PRN (21:59)
[2024-04-12] MEDS ORDERED: DEXTROSE 50% 50 ML SYRINGE IV PRN (21:59)
[2024-04-12] MEDS: lisinopril 10 MG TAB PO STA (22:11)
[2024-04-12] MEDS: INSULIN ASPART PER UNIT CHARGE SC SCH (22:38)
[2024-04-12] MEDS: traZODone HCL 50 MG TAB PO SCH (22:42)
[2024-04-12] MEDS: lamoTRIgine 100 MG TAB PO SCH (22:42)
[2024-04-12] MEDS: GABAPENTIN 300 MG CAP PO SCH (22:42)
[2024-04-12] MEDS: NON-FORMULARY MEDICATION (Melatonin 5 mg tablet) PO SCH (22:50)
[2024-04-12 23:10] LABS: C Reactive Protein < 0.50 mg/dl (0-0.5)
--- OUTSIDE RECORDS SUMMARY | 2024-04-13 02:23 | External Medical Summary | Summary of Care ---
Author Name Unknown Organization [facility] Address [address] [place] [address] Phone [phone] Care Team Providers Care Lamination Builder Name Role Phone WilsonGetachewTrinh Candelaria JONES Primary Care Provider [phone] Reason for Referral * Precert (Within 10 days (routine)) - Pending Review Specialty Diagnoses / Procedures Referred By Mariana jiménez Referred To Contact Radiology Diagnoses Acute right-sided low back pain with right-sided sciatica Procedures MRI L SPINE WO CONTRAST Arianna Calzada PA-C [address] [place] [address] [place] [id number] Referral ID Status Reason Start Date Expiration Date V isits Requested Visits Authorized [id number] Pending Review 04/17/[phone] Reason for Visit * Reason Comments Acute Encounter Details Date Type Department Care Team ([facility] Contact Info) Description 04/10/2024 2:20 PM EDT Office Visit Family Medicine [address] [place] [phone] Arianna Calzada PA-C [address] [place] [address] [place] [id number] Acute right-sided low back pain with right-sided sciatica* Allergies No known active allergiesdocumented as of this encounter (statuses as of 04/10/2024) Medications Medication Sig Dispensed Refills Start Date End Date Status Biktarvy 50-200-25 MG Oral Tablet (Bictegravir-Emtricita b-Johnofov) Take one tablet by mouth daily. 30 Tab 02/07/2021 Active Tadalafil 20 MG Oral Tablet Take 1 Tab by mouth daily as needed for Erectile Dysfunction. 10 Tab 1 03/05/2021 Active lamoTRIgine 25 MG Oral Tablet (LaMICtal) Take 1 Tablet by mouth in the morning. 06/02/2022 Active traZODone HCl 50 MG Oral Tablet (Desyrel) Take 1 Tablet by mouth daily. 06/02/2022 Active Melatonin 5 MG Oral Tablet Take 1 Tablet by mouth daily. 06/02/2022 Active buPROPion HCl ER (XL) 300 MG Oral Tablet Extended Release 24 Hour (Wellbutrin XL) TAKE 1 TABLET BY MOUTH DAILY 30 Tablet 5 08/08/2022 Active buPROPion HCl ER (XL) 150 MG Oral Tablet Extended Release 24 Hour (Wellbutrin XL) Take 1 Tablet by mouth in the morning. 90 Tablet 1 09/15/2022 Active Ondansetron HCl 4 MG Oral TabletIndications:Naus ea and vomiting, unspecified vomiting type Take 1 Tablet by mouth every 6 hours as needed for Nausea. 30 Tablet 12/11/2022 Active Meclizine HCl 25 MG Oral Tablet (Antivert)Indications: Vertigo Take 1 Tablet by mouth 3 times a day as needed for Dizziness. 30 Tablet 2 01/28/2023 Active metFORMIN HCl 500 MG Oral Tablet (Glucophage)Indication s:Metabolic syndrome TAKE 1 TABLET BY MOUTH TWICE A DAY WITH MORNING AND EVENING MEALS Strength: 500 mg 60 Tablet 5 12/07/2023 Active Famotidine 20 MG Oral Tablet (Pepcid)Indications:Vi ral gastroenteritis TAKE 1 TABLET BY MOUTH IN THE MORNING AND BEFORE BEDTIME 180 Tablet 2 12/24/2023 Active Lisinopril-hydroCHLORO thiazide 20-25 MG Oral TabletIndications:HTN, goal below 130/80 Take 1 Tablet by mouth in the morning. in the morning.. 90 Tablet 3 03/14/2024 Active Atorvastatin Calcium 20 MG Oral Tablet (Lipitor) Take 1 Tablet by mouth in the morning. 90 Tablet 3 03/14/2024 Active predniSONE 20 MG Oral Tablet (Deltasone)Indications :Acute right-sided low back pain with right-sided sciatica 2 tablets daily for 5 days then 1 tablet daily 15 Tablet 04/10/2024 Active documented as of this encounter (statuses as of 04/10/2024) Active Problems Problem Noted Date Diagnosed Date Wrist injury, right, initial encounter 4 Hyperlipidemia with target LDL less than 100 08/2021 Chronic right SI joint pain 03/18/2022 Overview: Intermittent Metabolic syndrome 02/18/2021 Overview: insulin level 37 HTN, goal below 130/80 02/07/2021 HIV disease 02/07/2021 Anxiety and depression 02/07/2021 Other male erectile dysfunction 02/07/2021 Medical marijuana use 02/07/2021 documented as of this encounter (statuses as of 04/10/2024) Resolved Problems Problem Noted Date Diagnosed Date Resolved Date Elevated blood sugar 02/07/2021 021 documented as of this encounter (statuses as of 04/10/2024) Immunizations Name Administration Dates Next Due COVID-19 mRNA, LNP-s, No Pre serve, 2-Dose Series (Setup) 02/18/2021 Seasonal Influenza, PF, 6 M & above, IM , (FluLaval or Fluzone) 09/14/2023,03/18/2022 TDAP (age 10 and older)(Boostrix) 03/18/2022 documented as of this encounter Social History Tobacco Use Types Packs/Day Years Used Date Smoking Tobacco: Former Cigarettes 1 2 Smokeless Tobacco: Never Alcohol Use Standard Drinks/Week Comments No 0 (1 standard drink = 0.6 oz pur e alcohol) Utilities Answer Date Recorded Do you have trouble paying y our heating, water, or electric bill? (Adult - for ages 18 years and over) Not on file 12/28/2023 Is your family able to pay t he heat, water, or electric bill? (Household - for ages 0-17 years) Not on file 12/28/2023 Does your family have access to good internet? (Household - for ages 0-17 years) Not on file 12/28/2023 Social Connections Answer Date Recorded How often do you feel lonely or isolated from those around you? (Adult - for ages 18 years and over) Not on file 12/28/2023 Sex and Gender Information Value Date Recorded Sex Assigned at Not on file Gender Identity Not on file Sexual Orientation Not on file Job Start Date Occupation Industry Not on file Not on file Not on file documented as of this encounter Last Filed Vital Signs Vital Sign Reading Time Taken Comments Blood Pressure 114/64 04/10/2024 2:33 PM EDT Pulse 81 04/10/2024 2:33 PM EDT Temperature 36.3 C (97.3 F) 04/10/2024 2:33 PM ED T Respiratory Rate - - Oxygen Saturation 94% 04/10/2024 2:33 PM EDT Inhaled Oxygen Concentration - - Weight 109 kg (240 lb 3.2 oz) 04/10/2024 2:33 PM EDT Height - - Body Mass Index 29.24 07/30/2023 2:53 PM EST documented in this encounter Progress Notes * Arianna Calzada PA-C - 04/10/2024 2:35 PM EDT Nursing Notes: Carmen Flores CMA 04/10/24 1433 Sign at exiting of workspace He is here for back pain. He was at [facility] for it. They did x-rays. They told him to follow up because he needed to see someone who specialized in treating lower back pain and sciatica. Pt here today for ER FU. Pt went to [facility] with lower back pain. They did xrays. Xrays showed moderate arthritic changes. Pt states that the pain started out very mild and got worse suddenly, about 3 days ago. No recent or initial injury. Pt has had back pain here and there but nothing like this. The pain is very severe. He was given a muscle relaxer at the ER but this hasn't helped. Pt denies swelling, redness, bruising. Pt has pain into right leg, numbness/tingling/weakness into leg. He has burning. Pt has more pain with movements and walking. Review of patient's allergies indicates: No Known Allergies Current Outpatient Medications Medication Sig Dispense Refill Biktarvy 50-200-25 MG Oral Tablet (Fdgfzdbznoz-Tgabyoluts-Tiwahiv) Take one tablet by mouth daily. 30 Tab 0 Tadalafil 20 MG Oral Tablet Take 1 Tab by mouth daily as needed for Erectile Dysfunction. 10 Tab 1 lamoTRIgine 25 MG Oral Tablet (LaMICtal) Take 1 Tablet by mouth in the morning. traZODone HCl 50 MG Oral Tablet (Desyrel) Take 1 Tablet by mouth daily. Melatonin 5 MG Oral Tablet Take 1 Tablet by mouth daily. buPROPion HCl ER (XL) 300 MG Oral Tablet Extended Release 24 Hour (Wellbutrin XL) TAKE 1 TABLET BY MOUTH DAILY 30 Tablet 5 buPROPion HCl ER (XL) 150 MG Oral Tablet Extended Release 24 Hour (Wellbutrin XL) Take 1 Tablet by mouth in the morning. 90 Tablet 1 Ondansetron HCl 4 MG Oral Tablet Take 1 Tablet by mouth every 6 hours as needed for Nausea. 30 Tablet 0 Meclizine HCl 25 MG Oral Tablet (Antivert) Take 1 Tablet by mouth 3 times a day as needed for Dizziness. 30 Tablet 2 metFORMIN HCl 500 MG Oral Tablet (Glucophage) TAKE 1 TABLET BY MOUTH TWICE A DAY WITH MORNING AND EVENING MEALS Strength: 500 mg 60 Tablet 5 Famotidine 20 MG Oral Tablet (Pepcid) TAKE 1 TABLET BY MOUTH IN THE MORNING AND BEFORE BEDTIME 180 Tablet 2 Lisinopril-hydroCHLOROthiazide 20-25 MG Oral Tablet Take 1 Tablet by mouth in the morning. in the morning.. 90 Tablet 3 Atorvastatin Calcium 20 MG Oral Tablet (Lipitor) Take 1 Tablet by mouth in the morning. 90 Tablet 3 No current facility-administered medications for this visit. 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 Tobacco Use Smoking status: Former Current packs/day: 1.00 Average packs/day: 1 pack/day for 2.0 years (2.0 ttl pk-yrs) Types: Cigarettes Smokeless tobacco: Never Vaping Use Vaping status: Every Day Substance and Sexual Activity Alcohol use: No Drug use: No Sexual activity: Not Currently Partners: Male Other Topics Concern Not on file Social History Narrative Not on file Social Determinants of Health Financial Resource Strain: Not on file Food Insecurity: Not on file Transportation Needs: Not on file Social Connections: Unknown (12/28/2023) Social Connections How often do you feel lonely or isolated from those around you? (Adult - for ages 18 years and over): Not on file Housing Stability: Not on file O:Blood pressure 114/64, pulse 81, temperature 36.3 C (97.3 F), weight 109 kg (240 lb 3.2 oz), SpO2 94%. GENERAL: alert, healthy, and no distress BACK: no edema, no erythema, no ecchymosis. Pain with ROM at waist and with right sided straight leg raise. Pain with ROM at right hip/knee against resistance. Weakness at RLE A:Acute right-sided low back pain with right-sided sciatica (Primary) - predniSONE 20 MG Oral Tablet (Deltasone); 2 tablets daily for 5 days then 1 tablet daily - MRI L SPINE WO CONTRAST; Future; Expected date: 04/17/2024 Will MRI lumbar spine. Start prednisone. Any questions/problems, please call. If anything changes, worsens, develops new sx, please call [facility]. If the pain worsens, please go to ER. Follow Up: Return if symptoms worsen or fail to improve. Arianna Calzada PA-C documented in this encounter Nursing Notes * Carmen Flores CMA - 04/10/2024 2:32 PM EDT He is here for back pain. He was at [facility] for it. They did x-rays. They told him to follow up because he needed to see someone who specialized in treating lower back pain and sciatica. documented in this encounter Plan of Treatment Upcoming Encounters Date Type Department Care Team (Late st Contact Info) Description 04/17/2024 9:30 AM EDT Imaging Radiology [address] [place] [phone] 10/25/2024 2:10 PM EDT Office Visit Family Medicine [address] [place] [phone] Trinh Wilson, [address] [place] [phone] Scheduled Orders Name Type Priority Associated Diagnoses Orde r Schedule MRI L SPINE WO CONTRAST Medical Imaging Routine Acute right-sided low back pain with right-sided sciatica Expected: 04/17/2024, Expires: 05/10/2025 Health Maintenance Due Date Last Done Comments MENINGOCOCCAL (MENACTRA/MENVEO) (1 - Risk 2-dose series) 1974 Depression Monitoring 1984 Hepatitis C Screening 1990 Hepatitis B Vaccine (1 of 3 - 19+ 3-dose series) 1991 Pneumococcal Vaccine: Pediatrics (0 to 5 Years) and At-Risk Patients (6 to 64 Years) (2 of 2 - PCV) 04/23/2016 04/23/2015 Colonoscopy 2017 Fecal Occult Blood Test 2017 Sigmoidoscopy 2017 Zoster Vaccines (2 of 2) 12/02/2022 10/07/2022 COVID-19 Vaccine ( season) 2024 09/25/2021, 03/12/2021, 02/18/2021 Influenza Vaccine (FLU shot) (#1) 2024 09/14/2023, 03/18/2022 GFR 01/13/2025 01/14/2024, 12/10, 05/24/2023, Additional history exists Albumin/Creatinine Ratio 03/18/2025 03/18/2022 Cologuard 06/13/2025 06/13/2022, 05/13, 06/09/2022 Colorectal Cancer Screening 06/13/2025 Diabetes Screening 01/13/2027 01/14/2024, 0 12/29/2023, 05/24/2023, Additional history exists Lipid Panel 06/12/2027 06/12/2022, 09/0 01/2022, 02/07/2021 DTap/Tdap Vaccines (2 - Td or Tdap) 03/18/2032 03/18/2022 HPV (Gardasil) Vaccine Aged Out No lo nger eligible based on patient's age to complete this topic documented as of this encounter Medical Devices Not on filedocumented as of this encounter Visit Diagnoses Diagnosis Acute right-sided low back pain with right-sided sciatica- Primary documented in this encounter Care Teams Lamination Builder Relationship Specialty Start Date End Date Trinh Wilson DO [address] [place] [address] [place] [id number] PCP - General Internal Medicine 06/15/22 documented as of this encounter
--- OUTSIDE RECORDS SUMMARY | 2024-04-13 02:23 | External Medical Summary | Summary of Care ---
Author Name Unknown Organization [facility] Address [address] [place] [address] Phone [phone] Care Team Providers Care Coal Gasification Technician Name Role Phone WilsonTrinh DO Primary Care Provider [phone] Reason for Visit * Reason Onset Date Comments Med Request 04/10/2024 Encounter Details Date Type Department Care Team ([facility] st Contact Info) Description 04/10/2024 Telephone Family Medicine [address] [place] [phone] Arianna Calzada PA-C [address] [place] [address] [place] [id number] Med Request Allergies No known active allergiesdocumented as of this encounter (statuses as of 04/11/2024) Medications Medication Sig Dispensed Refills Start Date End Date Status Biktarvy 50-200-25 MG Oral Tablet (Bictegravir-Emtricita b-Tenofov) Take one tablet by mouth daily. 30 [...] 1 tablet daily 15 Tablet 04/10/2024 Active ALPRAZolam 0.5 MG Oral Tablet (xaNAX) One tablet 30 minutes prior to procedure. 1 Tablet 04/10/2024 Active documented as of this encounter (statuses as of 04/11/2024) Active Problems Problem Noted Date Diagnosed Date [...] as of this encounter (statuses as of 04/11/2024) Resolved Problems Problem Noted Date Diagnosed Date Resolved Date Elevated blood sugar 02/07/2021 021 documented as of this encounter (statuses as of 04/11/2024) Immunizations Name Administration Dates Next Due COVID-19 mRNA, LNP-s, No Pre serve, 2-Dose Series (Blue Box) 02/18/2021 Seasonal Influenza, PF, 6 M & [...] on file documented as of this encounter Miscellaneous Notes * Telephone Encounter - Arianna Calzada PA-C - 04/10/2024 2:55 PM EDT Med sent. * Telephone Encounter - Jaimie Aguilar OSA - 04/10/2024 2:50 PM EDT Patient needs something called in for his MRI to [facility]. He is claustrophobic. documented in this encounter Plan of Treatment Upcoming Encounters Date Type Department Care Team (Late st Contact Info) Description 04/17/2024 9:30 AM EDT Imaging Radiology [address] [place] [phone] 10/25/2024 2:10 PM EDT Office Visit Family Medicine [address] [place] [phone] [address] [place] [phone] Health Maintenance Due Date Last Done Comments [...] Additional history exists Lipid Panel 06/12/2027 06/12/2022, 090 01/2022, 02/07/2021 DTap/Tdap Vaccines (2 - Td or Tdap) 03/18/2032 03/18/2022 HPV (Gardasil) Vaccine Aged Out No lo nger eligible based on patient's age to complete this topic documented as of this encounter Medical Devices Not on filedocumented as of this encounter Care Teams Coal Gasification Technician Relationship Specialty Start Date End Date Trinh Wilson DO [address] [place] [address] [place] [phone] PCP - General Internal Medicine 06/15/22 documented as of this encounter
--- OUTSIDE RECORDS SUMMARY | 2024-04-13 02:23 | External Medical Summary | Summary of Care ---
Author Name Unknown Organization [facility] Address [address] [place] [address] Phone [phone] Care Team Providers Care Display Director Name Role Phone Wilson, Trinh Gaona Primary Care Provider Encounter Details Date Type Department Care Team (Late st Contact Info) Description 04/08/2024 Result Scan Unspecified Department <No scans attached> Allergies No known active allergiesdocumented as of [...] the morning. 90 Tablet 3 03/14/2024 Active documented as of this encounter (statuses as of 04/10/2024) Active Problems Problem Noted Date Diagnosed Date Wrist injury, right, initial encounter Hyperlipidemia with target LDL less than 100 [...] mRNA, LNP-s, No Pre serve, 2-Dose Series (Hot Mix Mobile) 02/18/2021 Seasonal Influenza, PF, 6 M & [...] on file documented as of this encounter Plan of Treatment Upcoming Encounters Date Type Department Care Team (Late st Contact Info) Description 04/10/2024 2:20 PM EDT Office Visit [place] [address] [place] [phone] Arianna Calzada PA-C [address] [place] [address] [place] [phone] 10/25/2024 2:10 PM EDT Office Visit Family Medicine [address] [place] [phone] Trinh Wilson DO [address] [place] [address] [place] [phone] Health Maintenance Due Date Last Done Comments [...] Additional history exists Lipid Panel 06/12/2027 06/12/2022, 0901/2022, 02/07/2021 DTap/Tdap Vaccines (2 - Td or Tdap) 03/18/2032 03/18/2022 HPV (Gardasil) Vaccine Aged Out No lo nger eligible based on patient's age to complete this topic documented as of this encounter Medical Devices Not on filedocumented as of this encounter Procedures Procedure Name Priority Date/Time Associated Diagnosis Comments RADIOLOGY SCANNED RESULT 04/08/2024 documented in this encounter Results * RADIOLOGY SCANNED RESULT (04/08/2024) 04/08/2024 No Physician Data Unknown DIAGNOSTIC RAD IOLOGY SERVICES documented in this encounter Care Teams Display Director Relationship Specialty Start Date End Date Trinh Wilson DO [address] [place] [address] [place] [phone] PCP - General Internal Medicine 06/15/22 documented as of this encounter
--- OUTSIDE RECORDS SUMMARY | 2024-04-13 02:24 | External Medical Summary | Summary of Care ---
Author Name Unknown Organization [facility] Address [address] [place] [address] Phone [phone] Care Team Providers Care [employer] [employer] Name Role Phone Thong Monte DO Primary Care Provider Reason for Visit * Reason Onset Date Comments Medication Refill 03/14/2024 Encounter Details Date Type Department Care Team ([facility] Contact Info) Description 03/14/2024 Refill Family Medicine [address] [place] [phone] Thong Monte DO [address] [place] [address] [place] [id number] HTN, goal below 130/80 Allergies No known active allergiesdocumented as of this encounter (statuses as of 03/14/2024) Medications Medication Sig Dispensed Refills Start Date End Date Status Biktarvy 50-200-25 MG Oral Tablet (Bictegravir-Emtricit ab-Tenofov) Take one tablet by mouth daily. 30 [...] 09/15/2022 Active Ondansetron HCl 4 MG Oral TabletIndications:Ronald sea and vomiting, unspecified vomiting type Take 1 Tablet by mouth every 6 hours as needed for Nausea. 30 Tablet 12/11/2022 Active Meclizine HCl 25 MG Oral Tablet (Antivert)Indications :Vertigo Take 1 Tablet by mouth 3 times a day as needed for Dizziness. 30 Tablet 2 01/28/2023 Active metFORMIN HCl 500 MG Oral Tablet (Glucophage)Indicatio ns:Metabolic syndrome TAKE 1 TABLET BY MOUTH TWICE A DAY WITH MORNING AND EVENING MEALS Strength: 500 mg 60 Tablet 5 12/07/2023 Active Famotidine 20 MG Oral Tablet (Pepcid)Indications:V iral gastroenteritis TAKE 1 TABLET BY MOUTH IN THE MORNING AND BEFORE BEDTIME 180 Tablet 2 12/24/2023 Active Lisinopril-hydroCHLOR Othiazide 20-25 MG Oral TabletIndications:HTN , goal below 130/80 Take 1 Tablet by mouth in the morning. in the morning.. 90 Tablet 3 03/14/2024 Active Atorvastatin Calcium 20 MG Oral Tablet (Lipitor) Take 1 Tablet by mouth in the morning. 90 Tablet 3 03/14/2024 Active Lisinopril-hydroCHLOR Othiazide 20-25 MG Oral TabletIndications:HTN , goal below 130/80 Take 1 Tablet by mouth in the morning. in the morning.. 90 Tablet 3 02/24/2023 4 Discontinue d(Refill) Atorvastatin Calcium 20 MG Oral Tablet (Lipitor) Take 1 Tablet by mouth in the morning. 90 Tablet 3 03/09/2023 4 Discontinue d(Refill) documented as of this encounter (statuses as of 03/14/2024) Active Problems Problem Noted Date Diagnosed Date [...] as of this encounter (statuses as of 03/14/2024) Resolved Problems Problem Noted Date Diagnosed Date Resolved Date Elevated blood sugar 02/07/2021 021 documented as of this encounter (statuses as of 03/14/2024) Immunizations Name Administration Dates Next Due COVID-19 mRNA, LNP-s, No Pre serve, 2-Dose Series (Mapidy) 02/18/2021 Seasonal Influenza, PF, 6 M & [...] encounter Miscellaneous Notes * Telephone Encounter - Thong Monte DO - 03/14/2024 3:59 PM EDTSigned Prescriptions: Disp Refills Lisinopril-hydroCHLOROthiazide 20-25 MG Or*90 Tab*3 Sig: Take 1 Tablet by mouth in the morning. in the morning.. Authorizing Provider: THONG MONTE Atorvastatin Calcium 20 MG Oral Tablet (Li*90 Tab*3 Sig: Take 1 Tablet by mouth in the morning. Authorizing Provider: THONG MONTE * Telephone Encounter - Eleanor Delcid RN - 03/14/2024 1:37 PM EDTPending Prescriptions: Disp Refills Lisinopril-hydroCHLOROthiazide 20-25 MG Or*90 Tab*3 Sig: Take 1 Tablet by mouth in the morning. in the morning.. Atorvastatin Calcium 20 MG Oral Tablet (Li*90 Tab*3 Sig: Take 1 Tablet by mouth in the morning. * Telephone Encounter - Eleanor Delcid RN - 03/14/2024 1:37 PM EDTPending Prescriptions: Disp Refills Lisinopril-hydroCHLOROthiazide 20-25 MG Or*90 Tab*3 Sig: Take 1 Tablet by mouth in the morning. in the morning.. Atorvastatin Calcium 20 MG Oral Tablet (Li*90 Tab*3 Sig: Take 1 Tablet by mouth in the morning. * Telephone Encounter - Joanne Newell, KAYLEIGH - 03/14/2024 9:54 AM EDT Did you pend patient's preferred pharmacy and medication before forwarding?yes Pharmacy: [address] Pending Prescriptions: Disp Refills Lisinopril-hydroCHLOROthiazide 20-25 MG O*90 Tab*3 Sig: Take 1 Tablet by mouth in the morning. in the morning.. Last Visit: 07/30/2023 (in office), Visit date not found (telemedicine) Next Visit: 10/25/2024 If no future appointments scheduled, and last appointment is greater than a year ago, please schedule patient for a follow-up appointment Last date the medication was ordered: Did you pend patient's preferred pharmacy and medication before forwarding?yes Pharmacy: [address] Pending Prescriptions: Disp Refills Lisinopril-hydroCHLOROthiazide 20-25 MG O*90 Tab*3 Sig: Take 1 Tablet by mouth in the morning. in the morning.. Atorvastatin Calcium 20 MG Oral Tablet (L*90 Tab*3 Sig: Take 1 Tablet by mouth in the morning. Last Visit: 07/30/2023 (in office), Visit date not found (telemedicine) Next Visit: 10/25/2024 If no future appointments scheduled, and last appointment is greater than a year ago, please schedule patient for a follow-up appointment Last date the medication was ordered: [id number] Is this request for a controlled substance?No Urine Drug Screen:No results found for this or any previous visit. Patient Phone Numbers [facility] [phone] Labs: Lab Results Component Value Date/Time CREAT 1.2 01/14/2024 01:00 PM POTASSIUM 4.6 01/14/2024 01:00 PM TSH 2.95 06/12/2022 11:45 AM LDL 70 06/12/2022 11:45 AM ALT 32 01/14/2024 01:00 PM HGBA1C 5.4 06/12/2022 11:45 AM Is this request for a controlled substance?No Urine Drug Screen:No results found for this or any previous visit. Patient Phone Numbers Labs: Lab Results Component Value Date/Time CREAT 1.2 01/14/2024 01:00 PM POTASSIUM 4.6 01/14/2024 01:00 PM TSH 2.95 06/12/2022 11:45 AM LDL 70 06/12/2022 11:45 AM ALT 32 01/14/2024 01:00 PM HGBA1C 5.4 06/12/2022 11:45 AM * Telephone Encounter - Joanne Newell OSA - 03/14/2024 9:52 AM EDT Did you pend patient's preferred pharmacy and medication before forwarding?yes Pharmacy: No prescriptions requested or ordered in this encounter Last Visit: 07/30/2023 (in office), Visit date not found (telemedicine) Next Visit: 10/25/2024 If no future appointments scheduled, and last appointment is greater than a year ago, please schedule patient for a follow-up appointment Last date the medication was ordered: [id number] Is this request for a controlled substance?No Urine Drug Screen:No results found for this or any previous visit. Patient Phone Numbers Labs: Lab Results Component Value Date/Time CREAT 1.2 01/14/2024 01:00 PM POTASSIUM 4.6 01/14/2024 01:00 PM TSH 2.95 06/12/2022 11:45 AM LDL 70 06/12/2022 11:45 AM ALT 32 01/14/2024 01:00 PM HGBA1C 5.4 06/12/2022 11:45 AM documented in this encounter Plan of Treatment Upcoming Encounters Date Type Department Care Team (Late st Contact Info) Description 10/25/2024 2:10 PM EDT Office Visit Family Medicine [address] [place] [phone] Thong Monte [address] [place] [id number] Health Maintenance Due Date Last Done Comments [...] as of this encounter Visit Diagnoses Diagnosis HTN, goal below 130/80 Unspecified essential hypertension documented in this encounter Care Teams [employer] Relationship Specialty Start Date End Date Thong Monte DO [address] [place] [address] [place] [id number] PCP - General Internal Medicine 06/15/22 documented as of this encounter
[2024-04-13 08:11] LABS: Basophils # (auto) 0.02 K/uL (0.00-0.20); Basophils % (auto) 0.2 %; Eosinophils # (auto) 0.02 K/uL (0.00-0.50); Eosinophils % (auto) 0.2 %; Hematocrit (blood only) 39.4 % (42.0-52.0); Hemoglobin 13.6 g/dl (14.0-18.0); Immature Granulocytes # (auto) 0.05 K/uL (0.01-0.20); Immature Granulocytes % (auto) 0.5 %; Lymphocytes # (auto) 1.72 K/uL (1.20-3.40); Mean Corpuscular Hemoglobin 30.6 pg (25.0-34.0); Mean Corpuscular Hgb Conc 34.5 g/dL (32.0-36.0); Mean Corpuscular Volume 88.5 fL (80.0-100.0); Monocytes # (auto) 0.93 K/uL (0.11-0.59); Monocytes % (auto) 9.7 %; Neutrophils % (auto) 71.4 %; Platelet Count 284 K/uL (130-400); RDW Coefficient of Variation 11.3 % (11.5-14.5); RDW Standard Deviation 36.4 fL (36.4-46.3); Red Blood Count 4.45 M/uL (4.70-6.10); White Blood Count 9.54 K/ul (4.8-10.8)
[2024-04-13 08:25] LABS: BUN Creatinine Ratio 23.5 (10-20); Calcium 8.8 mg/dl (8.6-10.3); Creatinine Clr Calc Pharmacy 145.7 ml/min; Potassium 4.1 mmol/L (3.5-5.1)
[2024-04-13] MEDS: lisinopril 20 MG TAB PO SCH (08:27)
[2024-04-13] MEDS: TAMSULOSIN HCL 0.4 MG CAP PO SCH (08:28)
[2024-04-13] MEDS: buPROPion XL 150 MG TABCR PO SCH (08:28)
[2024-04-13] MEDS: buPROPion XL 300 MG TABCR PO SCH (08:28)
--- NOTE | 2024-04-13 08:49 | Orthopedic Consultation ---
Date of Consultation April 13, 2024 Assessment & Plan (1) Lumbosacral radiculopathy: MRI lumbar spine available for review. Performed on 04/12/2024. Demonstrates evidence of loss of lumbar lordosis. There is degenerative changes across the L2-L3 L3-L4 L4-5 discs. L4-5 demonstrates Modic disease and disc herniation involving the right neural foramen creating severe neuroforaminal disease on the right. Axillary views confirm broad-based disc protrusion L4-L5 facet operatively and disc herniation extending up to the foramen on the right. Plan at this time I discussed with the patient regarding his clinical presentation and treatment plan. I will consult interventional pain management for possible injections. Ultimately he may require surgery with excision of the fragment to resolve his leg pain. Make further conditions upon review. History of Present Illness Reason for Consultation: Severe right leg pain Attending Physician: Errol Reddy MD History of Present Illness This is a 53-year-old male that presents to the hospital yesterday with severe right leg radiculopathy. He states this has been present for approximately 5 days. Denies any specific trauma fall or event. 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 He describes his pain involving the right buttock posterior lateral thigh extending below the knee to the foot. Ambulation standing and walking markedly exacerbates his symptoms. Left lower extremity is asymptomatic. Allergies Allergy/AdvReac Type Severity Reaction Status Date / Time carbamazepine AdvReac Intermediate aches Verified 04/12/24 20:50 Home Medications Medication Instructions Recorded Confirmed Type atorvastatin 20 mg tablet 20 mg PO DAILY 02/24/24 04/12/24 History bictegravir 50 mg-emtricitabine 1 tab PO DAILY 02/24/24 04/12/24 History 200 mg-tenofovir alafenam 25 mg tablet (Biktarvy) bupropion HCl 150 mg 24 hr tablet, 150 mg PO QAM 02/24/24 04/12/24 History extended release bupropion HCl 300 mg 24 hr tablet, 300 mg PO QAM 02/24/24 04/12/24 History extended release finasteride 5 mg tablet 5 mg PO DAILY #90 tabs 02/24/24 04/12/24 Rx metformin 500 mg tablet 500 mg PO BIDM 02/24/24 04/12/24 History tamsulosin 0.4 mg capsule 0.4 mg PO DAILY #30 caps 02/24/24 04/12/24 Rx gabapentin 300 mg capsule 300 mg PO QPM 04/12/24 04/12/24 History lamotrigine 100 mg tablet 200 mg PO DAILY 04/12/24 04/12/24 History lisinopril 20 20 - 25 tab PO DAILY 04/12/24 04/12/24 History mg-hydrochlorothiazide 25 mg tablet melatonin 5 mg tablet 5 mg PO HS PRN Insomnia 04/12/24 04/12/24 History prednisone 20 mg tablet 40 mg PO DAILY 04/12/24 04/12/24 History trazodone 50 mg tablet 50 mg PO QPM 04/12/24 04/12/24 History Patient History Surgical History History of tonsillectomy and adenoidectomy History of cholecystectomy H/O circumcision Family History Brother Heart disease Father Heart disease Mother Heart disease Social History (Updated 04/12/24 @ 20:01 by Sue Martinez PA-C) Smoking Status: Never smoker Hx Alcohol Use: No Hx Substance Use: Yes Prescribed Medications: Marijuana Last Used Substance: Unknown Substance Use Type Other:: Marijuana vape Preferred Language: Irish Communication Ability: Effective 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 He has severe tension signs straight leg raising on the right negative on the left. He is obviously uncomfortable. He exhibits plus 5 out of 5 plantarflexion dorsiflexion quadriceps bilaterally. Sensory appears to be symmetric and intact. Results & Data Vital Signs (Past 12 Hours) Vital Signs Temp Pulse Resp BP BP Pulse Ox O2 Del Method 04/13/24 07:28 36.4 C L 54 L 16 121/68 95 Room Air 04/12/24 22:02 36.3 C L 59 L 18 149/82 H 96 Room Air 04/12/24 21:40 36.3 C L 59 L 18 149/82 H 96 Room Air 04/12/24 21:00 65 20 137/78 94 Room Air
[2024-04-13] MEDS ORDERED: FAMOTIDINE 20 MG TAB PO SCH (09:00)
[2024-04-13] MEDS: ACETAMINOPHEN 325 MG TAB PO PRN (10:03)
--- NOTE | 2024-04-13 10:15 | Pain Management Consultation ---
Date of Consultation April 13, 2024 Assessment & Plan (1) Neuroforaminal stenosis of lumbar spine: (2) Lumbosacral radiculopathy: Plan 1. The patient is experiencing right sided lumbosacral/superior gluteal/posterolateral hip pain symptoms, associated w/ radiation into the right lower extremity in a predominant L4, and less so L5, distribution pattern, with approximately 50% axial pain and 50% radicular pain, but the axial type pain is in more of a far right lateral/gluteal location. He denies any central or left- sided low back pain. * Patient is recommended to undergo RIGHT L4-5 transforaminal epidural steroid injection; plan for steroid to deposited centrally from the transforaminal approach. * The risks, benefits, and alternatives of the procedure were discussed in detail with the patient, and in full understanding of the procedure to be performed, the patient elects to proceed as discussed. * Procedure to be done by Dr. Alexander 04/14/2024, at noon. 2. Orders placed for patient to be NPO at midnight; may take medications with sips of water. 3. Ordered fluoroscopy via C-arm for pain procedure. 4. Continue gabapentin and give consideration for increasing the 300 mg dose to TID. 5. Continue oxycodone and acetaminophen as needed. 6. Patient was educated in detail on the potential development of cauda equina syndrome red flag symptoms (i.e. severe back pain, bilateral sciatica pain and altered sensation in the legs, bowel/bladder dysfunction, saddle anesthesia, sexual problems), and to contact our office immediately, or report to the ER, if they notice any of these. 7. Follow-up as an outpatient in the [facility] pain management clinic approximately 3-4 weeks after the injection. History of Present Illness Reason for Consultation: Consideration of lumbar epidural injection Requesting Physician: Joey Tsang DO Attending Physician: Errol Reddy MD History of Present Illness Patient is a 53 year old male with PMH HTN, HLD, metabolic syndrome, HIV, anxiety, and depression presented to the ED with c/o back pain with radiation to RLE x6 days. He he had had similar symptoms previously, but nothing this severe to where he was having difficulty even standing. Patient states that about 6 days ago he started to experience right side low back pain with radiation into the right hip and right leg. He localizes the pain into the right superior buttocks and posterior lateral hip, then traveling into the right lateral thigh, then the right anterior lateral proximal lower leg, anterior and anterior medial distal lower leg, and into the medial foot and great toe. Patient does also mention some occasional pains traveling from his right hip and towards the groin/anterior hip. States pain is sharp and intense with perform range of motion of the low back, or with standing/walking. Currently, he says that if he tries to stand up, it makes his symptoms very severe. He notes no specific incident or injury as a cause to his symptoms. Patient was seen at [facility] ED on 04/08/24 and given Solumedrol 125mg IV, Dilaudid 0.5mg IV, cyclobenzaprine 10mg, and a lidocaine patch and was discharged with Rx for gabapentin. He was diagnosed with sciatica per chart review. Patient was seen in his PCP's office on 04/10/2024 for this issue and was prescribed prednisone 40 mg daily x5 days, and an MRI lumbar spine was ordered, however not completed at the time of him presenting to the [facility]. Patient denies any central or left-sided low back pain he really does not seem to even be having much in the way of right sided lumbosacral region pain, but more so in the right buttocks/hip. He denies any left lower extremity involvement. Patient denies bowel/bladder incontinence and saddle anesthesia. He did undergo a lumbar spine MRI yesterday afternoon, which demonstrates discogenic degeneration, which is most pronounced at L4-5, resulting in associated central canal, lateral recess, and neuroforaminal narrowing. Of most significance is a moderate right lateral recess narrowing, and a 9 mm right foraminal disc protrusion that is best seen on image 21 of series 6. This location of pathology would match up with the patient's symptomatology. Patient was seen by Dr. Tsang this morning, and it was recommended that he attempt some pain management intervention prior to considering any surgery. Case discussed with Dr. Maine Alexander. Pain Assessment Full Body Front + Back: 2 1. 2. 3. 4. 5. Allergies Allergy/AdvReac Type Severity Reaction Status Date / Time carbamazepine AdvReac Intermediate aches Verified 04/12/24 20:50 Home Medications Medication Instructions Recorded Confirmed Type atorvastatin 20 mg tablet 20 mg PO DAILY 02/24/24 04/12/24 History bictegravir 50 mg-emtricitabine 1 tab PO DAILY 02/24/24 04/12/24 History 200 mg-tenofovir alafenam 25 mg tablet (Biktarvy) bupropion HCl 150 mg 24 hr tablet, 150 mg PO QAM 02/24/24 04/12/24 History extended release bupropion HCl 300 mg 24 hr tablet, 300 mg PO QAM 02/24/24 04/12/24 History extended release finasteride 5 mg tablet 5 mg PO DAILY #90 tabs 02/24/24 04/12/24 Rx metformin 500 mg tablet 500 mg PO BIDM 02/24/24 04/12/24 History tamsulosin 0.4 mg capsule 0.4 mg PO DAILY #30 caps 02/24/24 04/12/24 Rx gabapentin 300 mg capsule 300 mg PO QPM 04/12/24 04/12/24 History lamotrigine 100 mg tablet 200 mg PO DAILY 04/12/24 04/12/24 History lisinopril 20 20 - 25 tab PO DAILY 04/12/24 04/12/24 History mg-hydrochlorothiazide 25 mg tablet melatonin 5 mg tablet 5 mg PO HS PRN Insomnia 04/12/24 04/12/24 History prednisone 20 mg tablet 40 mg PO DAILY 04/12/24 04/12/24 History trazodone 50 mg tablet 50 mg PO QPM 04/12/24 04/12/24 History Pain History Previous Evaluations and Results Evaluations by other providers: Dr. Tsang Previous Imaging and Results Labs: Laboratory Results - last 48 hr 04/12/24 04/12/24 04/12/24 18:55 19:10 19:56 WBC 7.45 RBC 5.21 Hgb 16.1 Hct 45.5 MCV 87.3 MCH 30.9 MCHC 35.4 RDW Std Deviation 35.8 L RDW Coeff of Cesar 11.2 L Plt Count 320 MPV 9.2 L Immature Gran % (Auto) 0.8 Neut % (Auto) 88.6 Lymph % (Auto) 9.1 [place] % (Auto) 1.3 Eos % (Auto) 0.1 Baso % (Auto) 0.1 Neut # (Auto) 6.59 H Lymph # (Auto) 0.68 L [place] # (Auto) 0.10 L Eos # (Auto) 0.01 Baso # (Auto) 0.01 Immature Gran # (Auto) 0.06 ESR 10 Sodium 135 L Potassium 4.2 Chloride 101 Carbon Dioxide 24 Anion Gap 10 BUN 19 Creatinine 0.96 Est Cr Clr Drug Dosing 122.9 eGFR 95.70 BUN/Creatinine Ratio 19.8 Glucose 128 H POC Glucose Estimat Average Glucose 103 Hemoglobin A1c 5.2 Calcium 9.9 Total Bilirubin 0.7 AST 23 ALT 28 Alkaline Phosphatase 59 C-Reactive Protein < 0.50 Total Protein 7.9 Albumin 5.1 H Globulin 2.8 Albumin/Globulin Ratio 1.8 Urine Color Yellow Urine Appearance Clear Urine pH 6.5 Ur Specific [place] 1.030 Urine Protein Negative Urine Glucose (UA) Negative Urine Ketones Negative Urine Blood Negative Urine Nitrite Negative Urine Bilirubin Negative Urine Urobilinogen Negative Ur Leukocyte Esterase Negative 04/12/24 04/13/24 04/13/24 22:29 07:28 07:48 WBC 9.54 RBC 4.45 L Hgb 13.6 L Hct 39.4 L MCV 88.5 MCH 30.6 MCHC 34.5 RDW Std Deviation 36.4 RDW Coeff of Cesar 11.3 L Plt Count 284 MPV 9.0 L Immature Gran % (Auto) 0.5 Neut % (Auto) 71.4 Lymph % (Auto) 18.0 [place] % (Auto) 9.7 Eos % (Auto) 0.2 Baso % (Auto) 0.2 Neut # (Auto) 6.80 H Lymph # (Auto) 1.72 [place] # (Auto) 0.93 H Eos # (Auto) 0.02 Baso # (Auto) 0.02 Immature Gran # (Auto) 0.05 ESR Sodium 136 Potassium 4.1 Chloride 104 Carbon Dioxide 27 Anion Gap 5 BUN 19 Creatinine 0.81 Est Cr Clr Drug Dosing 145.7 eGFR 106.75 BUN/Creatinine Ratio 23.5 H Glucose 92 POC Glucose 147 H 102 H Estimat Average Glucose Hemoglobin A1c Calcium 8.8 Total Bilirubin AST ALT Alkaline Phosphatase C-Reactive Protein Total Protein Albumin Globulin Albumin/Globulin Ratio Urine Color Urine Appearance Urine pH Ur Specific [place] Urine Protein Urine Glucose (UA) Urine Ketones Urine Blood Urine Nitrite Urine Bilirubin Urine Urobilinogen Ur Leukocyte Esterase 04/13/24 11:34 WBC RBC Hgb Hct MCV MCH MCHC RDW Std Deviation RDW Coeff of Cesar Plt Count MPV Immature Gran % (Auto) Neut % (Auto) Lymph % (Auto) [place] % (Auto) Eos % (Auto) Baso % (Auto) Neut # (Auto) Lymph # (Auto) [place] # (Auto) Eos # (Auto) Baso # (Auto) Immature Gran # (Auto) ESR Sodium Potassium Chloride Carbon Dioxide Anion Gap BUN Creatinine Est Cr Clr Drug Dosing eGFR BUN/Creatinine Ratio Glucose POC Glucose 89 Estimat Average Glucose Hemoglobin A1c Calcium Total Bilirubin AST ALT Alkaline Phosphatase C-Reactive Protein Total Protein Albumin Globulin Albumin/Globulin Ratio Urine Color Urine Appearance Urine pH Ur Specific [place] Urine Protein Urine Glucose (UA) Urine Ketones Urine Blood Urine Nitrite Urine Bilirubin Urine Urobilinogen Ur Leukocyte Esterase Patient History Surgical History History of tonsillectomy and adenoidectomy History of cholecystectomy H/O circumcision Family History Brother Heart disease Father Heart disease Mother Heart disease Social History (Updated 04/12/24 @ 20:01 by Sue Martinez PA-C) Smoking Status: Never smoker Hx Alcohol Use: No Hx Substance Use: Yes Prescribed Medications: Marijuana Last Used Substance: Unknown Substance Use Type Other:: Marijuana vape Preferred Language: [place]i Communication Ability: Effective Glazier Helper Required: No Beliefs That Will Affect Care: None Current Living Situation: Alone Feels Safe at Home: Yes Safety Concerns: Feels Safe At This Time Assistive Devices: None Assistive Devices Comment: Upper partial Physical Exam 2 Physical Exam: GENERAL: Speech and cognition is intact. Mood and affect is appropriate. Does not appear in acute distress. HEAD: Normocephalic; atraumatic. NECK: Trachea is midline. CHEST: Regular chest respiration and excursion. EXTREMITIES: Diminished ROM RLE. No TTP. Distal sensation and pulses intact bilaterally. BACK: Diminished ROM.+ Far right lateral lumbosacral tenderness. + Right gluteal tenderness. NEURO: CN II-XII grossly intact with no focal deficits noted. Gait not witnessed secondary to pain with attempt at standing. Awake, alert, and oriented x 3. SKIN: No lesions, erythema, or rashes noted. LOWER EXTREMITIES: Positive straight leg raise on the right. R Hip flexion 4-/5; knee extension 5/5; knee flexion 4/5; ankle dorsiflexion 5/5; ankle plantar flexion 5/5; EHL 4+/5 L Hip flexion 5/5; knee extension 5/5; knee flexion 5/5; ankle dorsiflexion 5/5; ankle plantar flexion 5/5; EHL 5/5 Results (Pain Clinic) Diagnostic Review MRI Findings: MR lumbar spine wo con CLINICAL HISTORY: 53 years-old Male with right leg weak. Acute low back pain with right lower extremity radicular symptoms COMPARISON: CT lumbar spine of same day TECHNIQUE: Multiplanar, multi sequence MRI of the lumbar spine was performed without intravenous contrast. FINDINGS: The imaged intra-abdominal and paraspinal structures are unremarkable. There is [id number] multilevel intervertebral disc space narrowing, spondylitic spurring and facet arthrosis throughout the lumbar spine. No acute fracture, subluxation, endplate erosion or marrow replacing process. The imaged sacrum and iliac bones also appear to be intact. Conus medullaris terminates at L1. No marrow edema. T12-L1: No central canal or foraminal narrowing. L1-L2: No central canal or foraminal narrowing. L2-L3: Small posterior disc osteophyte complex with ligamentum flavum thickening and facet arthrosis flattens the ventral thecal sac without significant central canal stenosis. Mild to moderate right foraminal narrowing. The left neural foramen is patent. L3-L4: Small posterior disc osteophyte complex noted in conjunction with ligament flavum thickening and facet arthrosis. Minimal central canal stenosis with mild bilateral foraminal narrowing. L4-L5: Spondylotic spurring with circumferential annular disc bulging. Ligamentum flavum thickening with mild to moderate facet arthrosis and small facet effusions. There is moderate central canal stenosis, AP dimension of the central canal measuring 7 mm. Left paracentral/left lateral recess 8 mm disc protrusion and annular fissure on image 22 series 6. Severe left lateral recess narrowing. There is moderate right lateral recess narrowing. 9 mm right foraminal disc protrusion on image 21 series 6. Moderate left with moderate to severe right foraminal narrowing. L5-S1: Spondylotic spurring with small posterior annular disc bulge, ligamentum flavum thickening with moderate facet arthrosis. The central canal is patent. Mild bilateral foraminal narrowing. IMPRESSION: 1. No acute fracture or subluxation. 2. Discogenic degeneration as above, most pronounced at L4-L5 resulting in associated central canal, lateral recess and neural foraminal narrowing. ACT 112: Negative or not required by law. The above report was generated using voice recognition software. It may contain grammatical, syntax or spelling errors. Electronically signed by: Sherman Giang M.D. 04/12/2024 7:07 PM Dictated: 04/12/241900 Transcribed: 04/12/241900 CT Findings: CT lumbar spine wo con HISTORY: 53 years-old Male severe pain acute severe low back pain with numbness and tingling of the lower legs COMPARISON: None TECHNIQUE: Multiple axial CT images of the lumbar spine were obtained without IV contrast. A dose lowering technique was used consistent with the principals of ALA. FINDINGS: Atherosclerosis of the iliac bifurcation. The imaged intra-abdominal and paraspinal structures are unremarkable. Probable small cyst of the left kidney. There is mild multilevel intervertebral disc space narrowing, spondylitic spurring and facet arthrosis throughout the lumbar spine. No acute fracture, subluxation, endplate erosion or marrow replacing process. The imaged sacrum and iliac bones also appear to be intact. Suboptimal evaluation of the central canal and neural foramen by CT technique. T12-L1: No central canal or foraminal narrowing. L1-L2: No central canal or foraminal narrowing. L2-L3: Small posterior disc osteophyte complex with ligamentum flavum thickening and facet arthrosis flattens the ventral thecal sac without significant central canal stenosis. Mild to moderate right foraminal narrowing. The left neural foramen is patent. L3-L4: Small posterior disc osteophyte complex noted in conjunction with ligament flavum thickening and facet arthrosis. Minimal central canal stenosis with mild bilateral foraminal narrowing. L4-L5: Spondylotic spurring with circumferential annular disc bulging. Punctate calcification noted on image 278 series 3. Ligamentum flavum thickening with mild to moderate facet arthrosis. There is moderate central canal stenosis with at least moderate narrowing of the lateral recesses. Moderate to severe bilateral foraminal narrowing. L5-S1: Spondylotic spurring with small posterior annular disc bulge, ligamentum flavum thickening with moderate facet arthrosis. The central canal is patent. Mild bilateral foraminal narrowing. IMPRESSION: 1. No acute fracture or subluxation. 2. Posterior annular disc bulge at L4-L5 in conjunction with ligamentum flavum thickening and facet arthrosis causes moderate central canal stenosis with moderate to severe bilateral foraminal narrowing. ACT 112: Negative or not required by law. The above report was generated using voice recognition software. It may contain grammatical, syntax or spelling errors. Electronically signed by: Sherman Giang M.D. 04/12/2024 3:23 PM Dictated: 04/12/24 1517 Transcribed: 04/12/24 151 Previous Records Review Previous Records: personally reviewed by me
--- NOTE | 2024-04-13 12:37 | Hospitalist Progress Note ---
Date of Service April 13, 2024 Assessment & Plan (1) Lumbosacral radiculopathy: Plan 53-year-old male with PMH of HTN, HLD, metabolic syndrome, HIV, anxiety, depression presented to the ED with complaint of back pain with radiation to RLE for about 5 days . Patient denies loss of control of bowel or bladder. Denies any known injury. 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 Orthospine evaluated, patient to follow-up with orthospine upon discharge. Pain management on board, plan for L4-L5 transforaminal epidural injection tomorrow, n.p.o. midnight. Continue with gabapentin, uptitrate, continue oxycodone and Tylenol. Bowel regimen on board. Other chronic medical conditions: Continue with/resume home meds as when able. Hypertension, fairly better. Hyperlipidemia on statin Rx DM2 on oral medications, well-controlled as of outpatient hemoglobin A1c of 5.14 June 2022 HIV disease, stable on regimen Anxiety/mood disorder, at baseline Past tobacco abuse DVT prophylaxis. SCDs Full code Text document was generated using Miso voice recognition software. It may contain grammatical or spelling errors. Kindly contact undersigned for clarification of any documentation item in question. Admission and Anticipated Discharge Date Admission Date: April 12, 2024 Subjective patient was seen and examined at bedside. Patient was lying in bed, on room air, NAD, resting comfortably. Patient reports some improvement in his back pain and right lower extremity radicular pain. Patient reports eating okay and moving bowels okay, denies flulike illness/fever/chills/sore throat/cough/chest pain. Physical Exam Physical Exam: General: no acute distress currently, WDWN Head: normocephalic, atraumatic Eyes: conjunctiva non-injected, anicteric ENT: normal inspection external ears, nose, mucous membranes moist Neck: supple, trachea midline, non-tender to palpation Lungs: clear, no respiratory distress, no wheezing/rhonchi/rales CV: RRR, no murmur, no pretibial edema Abd: normal BS, soft, non-tender +ve SLRT x rle. No OOP tenderness on fabien tebral palpation. Ext: no cyanosis, no calf tenderness Neuro: A&O x 3, no focal deficits noted, normal affect Skin: warm, dry Results & Data Results & Data Vital Signs (Past 12 Hours) Vital Signs Temp Pulse Resp BP Pulse Ox O2 Del Method 04/13/24 07:28 36.4 C L 54 L 16 121/68 95 Room Air
[2024-04-13] MEDS: GABAPENTIN 300 MG CAP PO SCH (20:39)
[2024-04-14] MEDS ORDERED: Nursing to Pharmacy Communication SCH ×2 (07:15→12:45)
[2024-04-14 07:29] LABS: Hematocrit (blood only) 42.1 % (42.0-52.0); Hemoglobin 14.8 g/dl (14.0-18.0); Mean Corpuscular Hgb Conc 35.2 g/dL (32.0-36.0); Mean Corpuscular Volume 88.3 fL (80.0-100.0); Mean Platelet Volume 9.4 fL (9.4-12.4); Platelet Count 292 K/uL (130-400); RDW Coefficient of Variation 11.5 % (11.5-14.5); RDW Standard Deviation 36.8 fL (36.4-46.3); Red Blood Count 4.77 M/uL (4.70-6.10); White Blood Count 6.31 K/ul (4.8-10.8)
[2024-04-14 07:46] LABS: BUN Creatinine Ratio 17.8 (10-20); Calcium 9.3 mg/dl (8.6-10.3); Creatinine Clr Calc Pharmacy 116.9 ml/min; Magnesium 2.1 mg/dl (1.7-2.4); Phosphorus 3.4 mg/dl (2.5-4.9); Potassium 4.2 mmol/L (3.5-5.1)
[2024-04-14] MEDS ORDERED: KETOROLAC TROMETHAMINE 15 MG/ML VIAL IV PRN (07:56)
[2024-04-14] MEDS: INSULIN ASPART PER UNIT CHARGE SC SCH ×2 (09:20→17:27)
[2024-04-14] MEDS: KETOROLAC 30 MG/ML VIAL IV ONE (09:21)
[2024-04-14] MEDS: ATORVASTATIN 20 MG TAB PO SCH (09:23)
[2024-04-14] MEDS: FINASTERIDE 5 MG TAB PO SCH (09:23)
[2024-04-14] MEDS: BIKTARVY PO SCH (09:24)
[2024-04-14] MEDS: INFLUENZA VACC TS2024-25(6m+)/PF (IIV3) 0.5mL Syr IM ONE (10:01)
[2024-04-14] MEDS ORDERED: hydrALAZINE HCL 25 MG TAB PO PRN (11:12)
--- NOTE | 2024-04-14 12:25 | Procedure Note ---
Date of Service April 14, 2024 Home Medications Medication Instructions Recorded Confirmed Type atorvastatin 20 mg tablet 20 mg PO DAILY 02/24/24 04/12/24 History bictegravir 50 mg-emtricitabine 1 tab PO DAILY 02/24/24 04/12/24 History 200 mg-tenofovir alafenam 25 mg tablet (Biktarvy) bupropion HCl 150 mg 24 hr tablet, 150 mg PO QAM 02/24/24 04/12/24 History extended release bupropion HCl 300 mg 24 hr tablet, 300 mg PO QAM 02/24/24 04/12/24 History extended release finasteride 5 mg tablet 5 mg PO DAILY #90 tabs 02/24/24 04/12/24 Rx metformin 500 mg tablet 500 mg PO BIDM 02/24/24 04/12/24 History tamsulosin 0.4 mg capsule 0.4 mg PO DAILY #30 caps 02/24/24 04/12/24 Rx gabapentin 300 mg capsule 300 mg PO QPM 04/12/24 04/12/24 History lamotrigine 100 mg tablet 200 mg PO DAILY 04/12/24 04/12/24 History lisinopril 20 20 - 25 tab PO DAILY 04/12/24 04/12/24 History mg-hydrochlorothiazide 25 mg tablet melatonin 5 mg tablet 5 mg PO HS PRN Insomnia 04/12/24 04/12/24 History prednisone 20 mg tablet 40 mg PO DAILY 04/12/24 04/12/24 History trazodone 50 mg tablet 50 mg PO QPM 04/12/24 04/12/24 History Allergies Allergy/AdvReac Type Severity Reaction Status Date / Time carbamazepine AdvReac Intermediate aches Verified 04/12/24 20:50 Past Med/Surg History Problem List (Updated 04/13/24 @ 12:19 by Anders Benitez PA-C) Neuroforaminal stenosis of lumbar spine Lumbosacral radiculopathy Anxiety and depression Dyslipidemia HIV (human immunodeficiency virus infection) HTN (hypertension) BPH w urinary obs/LUTS (Chronic) Encounter for vasectomy (Acute) Surgical History History of tonsillectomy and adenoidectomy History of cholecystectomy H/O circumcision Family History Brother Heart disease Father Heart disease Mother Heart disease Social History (Updated 04/12/24 @ 20:01 by Sue Martinez PA-C) Smoking Status: Never smoker Hx Alcohol Use: No Hx Substance Use: Yes Prescribed Medications: Marijuana Last Used Substance: Unknown Substance Use Type Other:: Marijuana vape Preferred Language: Syrian Communication Ability: Effective Instructional Support Technician Required: No Beliefs That Will Affect Care: None Current Living Situation: Alone Feels Safe at Home: Yes Safety Concerns: Feels Safe At This Time Assistive Devices: None Assistive Devices Comment: Upper partial Procedure Description ASA Class ASA2 Description of Procedure Free Text Your Procedure Description: TRANSFORAMINAL EPIDURAL STEROID INJECTION (DIAGNOSTIC) Diagnosis: Lumbar Radiculitis and Lumbar Herniated Disc Level injected: Right L4-5 Surgeon: Dr. Maine Alexander Anesthesia: local Material forwarded to lab: none Complications: none Medications used in total: 2% lidocaine 5ml Depomedrol 1ml (80mg/ml) Isovue 300 2ml Prior to starting, the Patients diagnosis, allergies, medication list, and the procedure were reviewed with the patient in detail. Potential risks including infection, bleeding, nerve injury, reaction to any one of the medications used for the procedure, persistent pain at the injection site and persistent symptoms discussed with the patient. Diagnostic and therapeutic nature of the procedure also discussed with the patient. Alternatives to the specific procedure was also discussed with the patient. Patient's questions were answered. Patient gives informed consent to proceed. The patient was brought to the fluoroscopy room and placed in prone position on the table. Immediately prior to starting the procedure, a time out was conducted with the staff and the patient where the patient was identified, proposed procedure was verified, consent was reviewed and the proper site for the planned procedure was identified. Fluoroscopy was utilized in performing the procedure to assist the placement of the needle, to evaluate the final position of the needle prior to injection and to avoid intravascular injection. Monitors used included intermittent blood pressure with automated device, continuous pulse oximetry and level of consciousness. Patient was not given any intravenous sedation and constant verbal contact was maintained throughout the procedure. Lumbar-sacral area was prepped with chloraprep and betadine solution. After the application, three minutes time elapsed prior to the start of the procedure to reduce risk of fire. Sterile drapes were applied. The appropriate interspace and disk was identified in a true AP view. The fluoroscope was then rotated to obtain a decubitus view in such a manner so that the superior articular process of the inferior vertebra was bisecting the pars inter-articularis of the vertebra above in two or in the 6 oclock position. Next, 4 mL of 2% lidocaine preservative-free was injected for local skin anesthesia. Then, a 22 Gauge 3.5 inch curved (15 degrees) spinal needle was inserted through the skin and subcutaneous tissues and advanced in a co-axial technique. Needle tip was first placed on the infero-lateral margin of the pars inter-articularis. Once the bony margin was contacted, the C-arm was rotated to obtain a lateral view. The needle was slowly "walked off" the bone and advanced toward the anterior and superior aspect of the foramen. Patient did not experience any pain or paresthesia. A six inch micro bore tubing was attached to the needle and aspiration did not demonstrate CSF or blood. Nonionic Isovue contrast 1ml was injected via the needle under live fluoroscopy. Spread of the contrast along the nerve root. AP view was checked to ensure the needle tip was in the close proximity to the nerve root an in the proximal neural foramen lateral to the inferior articular process and in the 6 oclock position. Additional 2ml of the contrast was injected under live fluoroscopy. Neither subdural or subarachnoid spread nor intravascular uptake was noted on plain fluoroscopy. Next 80mg depomedrol was injected followed by 2% lidocaine-MPF 1ml to flush the needle. The patient did not experience pain during the injection. Adequate hemostasis was noted. A sterile Band-Aid was applied to the injection site. Patient was monitored for 20 minutes and discharged with an accompanying adult. Discharge instructions were reviewed with the patient/caregiver. Any specific questions were answered. Patient/caregiver voiced understanding of the instruc tions. Follow-up appointment has been scheduled. Discharge Note D/C Note Report was called to the floor RN. Patient's vitals are within normal limits. Patient was transferred via litter by patient transport back to the floor. Assessment & Plan Admission and Anticipated Discharge Date Admission Date: April 12, 2024
--- NOTE | 2024-04-14 12:27 | Procedure Note ---
Date of Service April 14, 2024 Home Medications Medication Instructions Recorded Confirmed Type atorvastatin 20 mg tablet 20 mg PO DAILY 02/24/24 04/12/24 History bictegravir 50 mg-emtricitabine 1 tab PO DAILY 02/24/24 04/12/24 History 200 mg-tenofovir alafenam 25 mg tablet (Biktarvy) bupropion HCl 150 mg 24 hr tablet, 150 mg PO QAM 02/24/24 04/12/24 History extended release bupropion HCl 300 mg 24 hr tablet, 300 mg PO QAM 02/24/24 04/12/24 History extended release finasteride 5 mg tablet 5 mg PO DAILY #90 tabs 02/24/24 04/12/24 Rx metformin 500 mg tablet 500 mg PO BIDM 02/24/24 04/12/24 History tamsulosin 0.4 mg capsule 0.4 mg PO DAILY #30 caps 02/24/24 04/12/24 Rx gabapentin 300 mg capsule 300 mg PO QPM 04/12/24 04/12/24 History lamotrigine 100 mg tablet 200 mg PO DAILY 04/12/24 04/12/24 History lisinopril 20 20 - 25 tab PO DAILY 04/12/24 04/12/24 History mg-hydrochlorothiazide 25 mg tablet melatonin 5 mg tablet 5 mg PO HS PRN Insomnia 04/12/24 04/12/24 History prednisone 20 mg tablet 40 mg PO DAILY 04/12/24 04/12/24 History trazodone 50 mg tablet 50 mg PO QPM 04/12/24 04/12/24 History Allergies Allergy/AdvReac Type Severity Reaction Status Date / Time carbamazepine AdvReac Intermediate aches Verified 04/12/24 20:50 Past Med/Surg History Problem List (Updated 04/13/24 @ 12:19 by Anders Benitez PA-C) Neuroforaminal stenosis of lumbar spine Lumbosacral radiculopathy Anxiety and depression Dyslipidemia HIV (human immunodeficiency virus infection) HTN (hypertension) BPH w urinary obs/LUTS (Chronic) Encounter for vasectomy (Acute) Surgical History History of tonsillectomy and adenoidectomy History of cholecystectomy H/O circumcision Family History Brother Heart disease Father Heart disease Mother Heart disease Social History (Updated 04/12/24 @ 20:01 by Sue Martinez PA-C) Smoking Status: Never smoker Hx Alcohol Use: No Hx Substance Use: Yes Prescribed Medications: Marijuana Last Used Substance: Unknown Substance Use Type Other:: Marijuana vape Preferred Language: Algerian Communication Ability: Effective Account Services Associate Required: No Beliefs That Will Affect Care: None Current Living Situation: Alone Feels Safe at Home: Yes Safety Concerns: Feels Safe At This Time Assistive Devices: None Assistive Devices Comment: Upper partial Time Out Pre-Procedure Verification Yes: Consents/Permits Signed, Correct Position for Procedure, Correct Implants, Special Equipment, Requirements Available and Emergency Equipment Available & Checked Prior to Procedure and NA: Sedation Consent Signed and Chemical Waste Management Technician Applied (RN Sedation Only) Time Out Correct Patient, Correct Procedure, Correct Site-Side and Allergies Verified Site Marking Visible after Draping: Yes Team Agrees: Yes Time Out Performed Time: 12:07 Pain Mgmt Injection Nurses Note Nurses Note: see signed consent for meds, NDC, lot number, exp dates Discharge Note D/C Note Report was called to the floor RN. Patient's vitals are within normal limits. Patient was transferred via litter by patient transport back to the floor. Assessment & Plan Admission and Anticipated Discharge Date Admission Date: April 12, 2024
--- NOTE | 2024-04-14 15:09 | Hospitalist Progress Note ---
Date of Service April 14, 2024 Assessment & Plan (1) Lumbosacral radiculopathy: Plan 53-year-old male with PMH of HTN, HLD, metabolic syndrome, HIV, anxiety, depression presented to the ED with complaint of back pain with radiation to RLE for about 5 days . Patient denies loss of control of bowel or bladder. Denies any known injury. 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 Orthospine evaluated, patient to follow-up with orthospine upon discharge. Pain management on board, plan for L4-L5 transforaminal epidural injection today. Continue with gabapentin, uptitrate, continue oxycodone and Tylenol. Bowel regimen on board. Other chronic medical conditions: Continue with/resume home meds as when able. Hypertension, fairly ok. Hyperlipidemia on statin Rx DM2 on oral medications, well-controlled as of outpatient hemoglobin A1c of 5.14 June 2022 HIV disease, stable on regimen Anxiety/mood disorder, at baseline Past tobacco abuse DVT prophylaxis. SCDs Full code Text document was generated using [employer] voice recognition software. It may contain grammatical or spelling errors. Kindly contact undersigned for clarification of any documentation item in question. Admission and Anticipated Discharge Date Admission Date: April 12, 2024 Subjective Patient was seen and examined at bedside. Patient was lying in bed, on room air, NAD, resting comfortably. Patient reports not much control w/ his back pain and right lower extremity radicular pain. Pt is npo for epidural injection later in the day. Patient denies flulike illness/fever/chills/sore throat/cough/chest pain. Physical Exam Physical Exam: General: no acute distress currently, WDWN Head: normocephalic, atraumatic Eyes: conjunctiva non-injected, anicteric ENT: normal inspection external ears, nose, mucous membranes moist Neck: supple, trachea midline, non-tender to palpation Lungs: clear, no respiratory distress, no wheezing/rhonchi/rales CV: RRR, no murmur, no pretibial edema Abd: normal BS, soft, non-tender +ve SLRT x rle. No OOP tenderness on fabien tebral palpation. Ext: no cyanosis, no calf tenderness Neuro: A&O x 3, no focal deficits noted, normal affect Skin: warm, dry Results & Data Results & Data Vital Signs (Past 12 Hours) Vital Signs Temp Pulse Resp BP Pulse Ox O2 Del Method 04/14/24 07:32 36.8 C 49 L 14 155/89 H 94 Room Air
[2024-04-14] MEDS: DOCUSATE SODIUM 100 MG CAP PO SCH (21:06)
[2024-04-14] MEDS: GABAPENTIN 300 MG CAP PO SCH (21:06)
[2024-04-15] MEDS: POLYETHYLENE (MIRALAX) 17 GM PACK PO PRN (09:31)
--- NOTE | 2024-04-15 16:50 | Hospitalist Progress Note ---
Date of Service April 15, 2024 Assessment & Plan (1) Lumbosacral radiculopathy: Plan 53-year-old male with PMH of HTN, HLD, metabolic syndrome, HIV, anxiety, depression presented to the ED with complaint of back pain with radiation to RLE for about 5 days . Patient denies loss of control of bowel or bladder. Denies any known injury. 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 Orthospine evaluated, patient to follow-up with orthospine upon discharge. Pain management on board, s/p L4-L5 transforaminal epidural injection 04/14. Continue with gabapentin, uptitrate, continue oxycodone and Tylenol. Bowel regimen on board. Back pain some improved per pt. Other chronic medical conditions: Continue with/resume home meds as when able. Hypertension, fairly ok. Hyperlipidemia on statin Rx DM2 on oral medications, well-controlled as of outpatient hemoglobin A1c of 5.14 June 2022 HIV disease, stable on regimen Anxiety/mood disorder, at baseline Past tobacco abuse DVT prophylaxis. SCDs Full code Text document was generated using [employer] voice recognition software. It may contain grammatical or spelling errors. Kindly contact undersigned for clarification of any documentation item in question. Admission and Anticipated Discharge Date Admission Date: April 12, 2024 Subjective Patient was seen and examined at bedside. Patient was standing up, on room air, NAD, resting comfortably. Patient reports some improvement in back pain after epidural but doesn't feel confident enough to go home. Pt states he would like to see how he does today. Patient denies flulike illness/fever/chills/sore throat/cough/chest pain. Physical Exam Physical Exam: General: no acute distress currently, WDWN Head: normocephalic, atraumatic Eyes: conjunctiva non-injected, anicteric ENT: normal inspection external ears, nose, mucous membranes moist Neck: supple, trachea midline, non-tender to palpation Lungs: clear, no respiratory distress, no wheezing/rhonchi/rales CV: RRR, no murmur, no pretibial edema Abd: normal BS, soft, non-tender +ve SLRT x rle. No OOP tenderness on fabien tebral palpation. Ext: no cyanosis, no calf tenderness Neuro: A&O x 3, no focal deficits noted, normal affect Skin: warm, dry Results & Data Results & Data Vital Signs (Past 12 Hours) Vital Signs Temp Pulse Resp BP Pulse Ox O2 Del Method 04/15/24 15:52 36.6 C 59 L 16 112/69 94 Room Air 04/15/24 07:34 36.7 C 52 L 15 122/78 94 Room Air
[2024-04-15] MEDS: GABAPENTIN 300 MG CAP PO SCH (19:47)
[2024-04-16 07:49] VITALS: BP 127/84; PULSE 64; RESP 16; TEMP 98.1; O2SAT 95
--- NOTE | 2024-04-16 11:38 | Discharge Summary ---
Date of Service April 16, 2024 Admission HPI Per Admitting Provider Patient is 53 year old male with PMH HTN, HLD, metabolic syndrome, HIV, anxiety, depression presented to ER with c/o back pain with radiation to RLE x 5 days. Patient states 5 days ago started with right low back pain with radiation right hip and right leg. States pain is sharp and intense with range of motion of back or walking. Describes pain as going right lateral hip down into right anterior thigh and right lateral leg extending to right calf. Reports some tingling sensation to right lower leg. Denies loss of control of bowel or bladder. Denies any known injury. States history of similar symptoms in past that would usually last 1 to 2 days and self resolve. Patient was seen at [facility] ER on 04/08/24 and given Solumedrol 125mg IV, Dilaudid 0.5mg IV, cyclobenzaprine 10mg and lidocaine patch and was discharged with Rx for gabapentin was diagnosed with sciatica per chart review. Patient seen PCPs office 04/10/2024 for back pain and was prescribed prednisone 40 mg daily x 5 days and MRI lumbar spine was ordered however not completed yet. Denies fever/chills, diaphoresis, N/V/D/C, [place], dizziness, syncope, neck pain, CP, SOB, cough, sore throat, rhinorrhea, abdominal pain, extremity weakness, extremity edema, rashes, urinary symptoms. Admission Exam Per Admitting Provider General: no acute distress currently, WDWN Head: normocephalic, atraumatic Eyes: conjunctiva non-injected, anicteric ENT: normal inspection external ears, nose, mucous membranes moist Neck: supple, trachea midline, non-tender to palpation Lungs: clear, no respiratory distress, no wheezing/rhonchi/rales CV: RRR, no murmur, no pretibial edema Abd: normal BS, soft, non-tender Back: +tenderness to palpation lower lumbar spinous processes and right paraspinous lumbar musculature, +tenderness to palpation right gluteus girish, +right straight leg raise to approximately 45 degrees, sensation to light touch intact bilateral legs and reported sensation equal bilaterally Ext: no cyanosis, no calf tenderness Neuro: A&O x 3, no focal deficits noted, normal affect Skin: warm, dry Principal Diagnosis Lumbar radiculopathy, right 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 Discharge Exam General: no acute distress currently, WDWN Head: normocephalic, atraumatic Eyes: conjunctiva non-injected, anicteric ENT: normal inspection external ears, nose, mucous membranes moist Neck: supple, trachea midline, non-tender to palpation Lungs: clear, no respiratory distress, no wheezing/rhonchi/rales CV: RRR, no murmur, no pretibial edema Abd: normal BS, soft, non-tender Ext: no cyanosis, no calf tenderness Neuro: A&O x 3, no focal deficits noted, normal affect Skin: warm, dry Discharge Data Allergies Allergy/AdvReac Type Severity Reaction Status Date / Time carbamazepine AdvReac Intermediate aches Verified 04/12/24 20:50 Consultations 04/12/24 19:18 ED Decision to Admit Stat 04/13/24 08:49 Consult Pain Management Routine Ordered Studies 04/12/24 14:23 CT lumbar spine wo con Stat 04/12/24 16:16 MRI Lumbar Spine [MR lumbar spine wo con] Stat 04/14/24 12:00 FL fluoro for pain procedure Routine Hospital Course (1) Lumbosacral radiculopathy: Plan 53-year-old male with PMH of HTN, HLD, metabolic syndrome, HIV, anxiety, depression presented to the ED with complaint of back pain with radiation to RLE for about 5 days . Patient denies loss of control of bowel or bladder. Denies any known injury. He was managed for the following: Lumbar radiculopathy, right Discogenic degeneration most pronounced at L4-L5 Patient coming in with back pain, admitting L spine MRI with Discogenic degeneration as above, most pronounced at L4-L5 resulting in associated central canal, lateral recess and neural foraminal narrowing. Orthospine evaluated, patient to follow-up with orthospine upon discharge. Pain management on board, s/p L4-L5 transforaminal epidural injection 04/14. Continue with gabapentin, uptitrate, continue oxycodone and Tylenol. Bowel regimen on board. Back pain improved per pt, he states he is moving around ok now. pt is hemodynamically stable and would like to go home today. Other chronic medical conditions: Continue with/resume home meds as when able. Hypertension, fairly ok. Hyperlipidemia on statin Rx DM2 on oral medications, well-controlled as of outpatient hemoglobin A1c of 5.14 June 2022 HIV disease, stable on regimen Anxiety/mood disorder, at baseline Past tobacco abuse DVT prophylaxis. SCDs Full code Patient is being discharged home with following instruction at the point of discharge: Follow-up with your primary care physician within a week time and likely you will need labs CBC/CMP/magnesium/phosphorus. For your lower back pain, you will be discharged on few days worth of pain medication. You will need ongoing evaluation at pain management clinic and at your PCP office for further evaluation/pain management prescription. Take [id number] stool softener/laxative with a goal of 1-2 bowel movements a day while you are on opiate pain medication. Recommend you establish with pain management clinic in 1 to 2 weeks time upon discharge. Follow-up with orthospine as an outpatient. Do not bend or lift heavier than 5 pounds until your pain is better controlled otherwise you can go about your daily activities of living. Take your medications as prescribed. Please make sure that you are able to get your medications today by calling your pharmacy before you leave the hospital so that your treatment continuity is not broken. Text document was generated using [employer] voice recognition software. It may contain grammatical or spelling errors. Kindly contact undersigned for clarification of any documentation item in question. Home Health Attestation I certify that this patient is under my care and that I, or a physicians physician assistant certified working with me, had a face to-face encounter that meets the home health [id number] encounter requirements with this patient. The encounter with the patient was in whole, or in part, for the following medical condition, which is the primary reason for home health care (list medical condition): I certify that, based on my findings, the following services are medically necessary home health services: My clinical findings support the need for the above services because: Further, I certify that my clinical findings support that this patient is homebound (i.e. absences from home require considerable and taxing effort and are for medical reasons or confucianist services or infrequently or of short duration when for other reasons) because: Certification for Home Health Services: Based on the above findings, I certify that this patient is confined to the home and needs intermittent senior care care, physical therapy and/or speech therapy or continues to need occupational therapy. The patient is under my care, and I have initiated the establishment of the plan of care. This patient will be followed by a physician who will periodically review the plan of care. 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 For your lower back pain, you will be discharged on few days worth of pain medication. You will need ongoing evaluation at pain management clinic and at your PCP office for further evaluation/pain management prescription. Take [id number] stool softener/laxative with a goal of 1-2 bowel movements a day while you are on opiate pain medication. Recommend you establish with pain management clinic in 1 to 2 weeks time upon discharge. Follow-up with orthospine as an outpatient. Do not bend or lift heavier than 5 pounds until your pain is better controlled otherwise you can go about your daily activities of living. Take your medications as prescribed. Please make sure that you are able to get your medications today by calling your pharmacy before you leave the hospital so that your treatment continuity is not broken. Pending Studies at Discharge: No Stand-Alone Forms: My [employer], Smoking Cessation Medications and DC Order Prescriptions: New docusate sodium 100 mg Capsule 100 mg PO BID PRN (Reason: constipation) Qty: 20 0RF oxycodone 10 mg tablet 10 mg PO Q6H PRN (Reason: pain (scale score 7-10)) 5 Days Qty: 20 0RF Continued finasteride 5 mg tablet 5 mg PO DAILY Qty: 90 3RF tamsulosin 0.4 mg capsule 0.4 mg PO DAILY Qty: 30 2RF metformin 500 mg tablet 500 mg PO BIDM atorvastatin 20 mg tablet 20 mg PO DAILY bupropion HCl 150 mg tablet extended release 24 hr 150 mg PO QAM bupropion HCl 300 mg tablet extended release 24 hr 300 mg PO QAM Biktarvy 50-200-25 mg tablet 1 tab PO DAILY trazodone 50 mg tablet 50 mg PO QPM lisinopril-hydrochlorothiazide 20-25 mg tablet 20 - 25 tab PO DAILY lamotrigine 100 mg tablet 200 mg PO DAILY melatonin 5 mg tablet 5 mg PO HS PRN (Reason: Insomnia) Changed gabapentin 300 mg capsule 300 mg PO TID Qty: 90 0RF Discontinued prednisone 20 mg tablet 40 mg PO DAILY Rx Instructions: Started 04/11/24 for 5 day course Discharge Orders: Discharge Order (Routine); Ordered 04/16/24 Ordered By: Errol Reddy Admission Data Admit Date/Time: 04/12/24 19:59 Attending Provider: Errol Reddy Admit Provider: Sigifredo Hein Primary Care Provider: Trinh Wilson Other Providers: Sigifredo Hein; [place] Alexander
== END 2024-04-16 13:43 | disposition home or self-care (01) | DRG 552 ==
LOC: ED 13:01 → 3W 19:59